=== PATIENT | male | born 1945 | race Caucasian/White ===

== ENCOUNTER → 2016-06-15 | Outpatient (CLI) | payer OTHER, MEDICARE ==
--- NOTE | 2016-06-15 18:55 | DX ---
Cervical Spine, Three Views HISTORY: History of cervical fusion. Right-sided pain. FINDINGS: There is bony fusion of C5 and C6. Marked intervertebral disk height loss at C4-C5 and C6-C7 is compatible with degenerative disk diseas e. Mild degenerative anterolisthesis of C3 upon C4. Marked uncovertebral degenerative changes throu ghout the mid and lower cervical spine. Soft tissue calcifications are present anterior to C3 and C4 . IMPRESSIONS 1. Prior fusion of C5 and C6. 2. Advanced degenerative disk disease at C4-C5 and C6-C7. 3. Mild degenerative anterolisthesis of C3 upon C4. 4. Multilevel uncovertebral and facet degenerative arthropathy throughout the mid and lower cervical spine.
== END ==
LOC: FIMAGING 11:36
PROVIDERS: ATTEND Orthopaedic Surgery Orthopaedic Surgery of the Spine
DX: M50.321 Other cervical disc degeneration at C4-C5 level (principal); M50.323 Other cervical disc degeneration at C6-C7 level; M12.88 Other specific arthropathies, not elsewhere classified, other specified site; Z98.1 Arthrodesis status

== ENCOUNTER → 2016-06-24 | Outpatient (CLI) | payer OTHER, MEDICARE ==
[~2016-06-24] MED LIST: FLUMAZENIL 0.5 MG/5 ML MDV IVP ONE; MIDAZOLAM 2 MG/2 ML VIAL ONE; NALOXONE HCL 0.4 MG/ML INJ ONE; NS 1,000 ML IV SCH; ONDANSETRON 4 MG/2 ML VIAL ONE; fentaNYL 100 MCG/2 ML INJ ONE
[2016-06-24 08:27] LABS: INR 1.02 (0.83-1.16); PROTIME(PATIENT) 13.3 SEC (12.0-15.0)
--- NOTE | 2016-06-24 10:52 | DX ---
Lumbar Myelogram Indication: 71 year old with back pain and left lower extremity radiculopathy. Comparison: Lumbar spine November 02, 2010, myelogram September 28, 2010. Informed consent was given, which included the risk of spinal headache, infection, aseptic meningitis and bleeding. The examination was performed with conscious sedation at the request of the patient. T he risks and benefits of conscious sedation were provided. Sedation: The patient received 50 mcg of fentanyl and 2 mg of Versed during 52 minutes of monitoring, with start time at 900 and end time at 952. Technique: The patient was placed prone on the fluoroscopic table. The L5 laminectomy defect was trevon ntified with fluoroscopy and the overlying skin was marked. The skin was cleaned with Betadine, steri carmelina draped, and the skin and deep soft tissues were numbed with 1% lidocaine. Utilizing intermittent fluoroscopy, a 22 gauge Tessy spinal needle was advanced into the thecal sac. Once clear CSF appe ared in the needle hub, 10 mL of nonionic Isovue M 200 contrast were slowly injected into the thecal sac and was seen to flow easily away from the needle on fluoroscopy. The needle was withdrawn. A band age was applied. Fluoroscopic images were obtained. The patient was then transferred to CT for furthe r imaging. Fluoroscopy: 1.4 minutes. Dose= 38.3 mGy. Findings: Bilateral L5-S1 fusion hardware is again noted. Mild spinal canal narrowing is present at L 1-L2 and L2-L3 with moderate spinal canal narrowing at L3-L4 and probable moderate spinal canal narro wing at L4-L5. Multilevel degenerative change in the lumbar spine will be further documented on subse quent CT. Atherosclerotic calcification is present in the aorta. Impression: Multilevel degenerative change and spinal canal narrowing, most prominent at L3-L4 and L4 -L5.
--- NOTE | 2016-06-24 11:22 | CT ---
CT Lumbar Myelogram History: 71 year old with prior lumbar surgery, low back pain radiating into the left lower extremity . Comparison: Lumbar myelogram September 28, 2010. Technique: Axial images were obtained through the lumbar spine following the intrathecal administrati on of contrast. Multiplanar reformations were performed. Dose reduction techniques were utilized. Findings: Bilateral transpedicular screw and macey fusion hardware at L5-S1 is stable, with all S1 scre ws extending ventral to the S1 body. Hardware is intact without evidence of loosening. Mild anterior height reduction at L1 and L2 is stable. Solid anterior fusion is noted at L5-S1. L5 laminectomy is n oted. Trace retrolisthesis of L1 on L2 and L2 on L3 is stable. 4 to 5 mm retrolisthesis of L3 on L4 a nd 6 mm anterolisthesis of L5 on S1 is stable. Vacuum disk is noted from L1 through L4. The conus is at L1 and appears normal. Mild fatty infiltration is suspected in the liver. Nodular contour of the adrenal glands is stable. N onobstructing right nephrolithiasis is present, with stones measuring up to 3 mm. Duplication of the left collecting system is noted. A small hiatal hernia is present. Sigmoid diverticulosis is present without evidence of diverticulitis. Moderate atherosclerosis is present in a normal caliber aorta. T10-T11: There is incomplete visualization of this level, with a moderate annular bulge causing moder ate spinal canal narrowing, similar to the comparison in its visualized extent. T11-T12: Mild vertebral spondylosis with a mild annular bulge, with minimal spinal canal narrowing an d no significant neural foraminal stenosis. T12-L1: Mild vertebral spondylosis with a minimal annular bulge with no significant spinal canal narr owing or neural foraminal stenosis. L1-2: Slight increase in severe vertebral spondylosis with no significant change in a mild diffuse an nular bulge. Small foraminal disk/osteophyte complexes, right greater than left, are again noted. There is stable mild spinal canal narrowing wit h minimal right neural foraminal stenosis. L2-3: Slight increase in moderate vertebral spondylosis with a small posterior disk/osteophyte comple x and minimal facet hypertrophy, with mild spinal canal narrowing and minimal left neural foraminal s tenosis. A left lateral osteophyte approaches the anterior aspect of the L2 nerve root, similar to th e comparison. L3-4: Severe vertebral spondylosis at L3-L4 with a posterior disk/osteophyte complex and moderate fac et and moderate left ligamentum flavum hypertrophy is noted. Right hemilaminotomy is suspected in the interval. Severe spinal canal narrowing (7 to 8 mm) is improved since the comparison, where it measu red approximately 5 to 6 mm. Mild to moderate right and severe left neural foraminal stenosis is incr eased since the comparison. L4-5: Increased severe vertebral spondylosis with a moderate posterior disk/osteophyte complex and mo derate to severe facet hypertrophy, with increased severe spinal canal narrowing (7 to 8 mm), previou sly 10 mm. Severe left and moderate right neural foraminal stenosis is increased since the comparison . Ligamentum flavum hypertrophy is less conspicuous. L5-S1: Prior fusion with no significant spinal canal narrowing or neural foraminal stenosis. Impression: 1. L3-L4: Severe spinal canal narrowing, improved since 2010, with increased mild to moderate right a nd severe left neural foraminal stenosis. 2. L4-L5: Severe spinal canal narrowing with severe left and moderate right neural foraminal stenosis , increased since the comparison. 3. Nonobstructing nephrolithiasis. 4. Additional findings as above. Please see above findings at specific disk levels.
== END ==
LOC: FIMAGING 07:29
PROVIDERS: ATTEND Orthopaedic Surgery Orthopaedic Surgery of the Spine
PROC: 3E0R3KZ Introduction of Other Diagnostic Substance into Spinal Canal, Percutaneous Approach (ICD-10-PCS; principal; 2016-06-24 10:00)
DX: M48.06 Spinal stenosis, lumbar region (principal); M51.86 Other intervertebral disc disorders, lumbar region; Z98.1 Arthrodesis status; I25.10 Atherosclerotic heart disease of native coronary artery without angina pectoris
CPT/HCPCS: 62284; 72132; 72265; J2250; J2405; J3010; J2310

== ENCOUNTER → 2017-07-05 | Outpatient (CLI) | payer OTHER, MEDICARE | LOC: BHFA 09:30 | PROVIDERS: ATTEND Internal Medicine Cardiovascular Disease | DX: Z01.818 Encounter for other preprocedural examination (principal) | CPT/HCPCS: 78452; 93017; A9500; J2785 ==

== ENCOUNTER → 2017-07-18 | Outpatient (CLI) | payer OTHER, MEDICARE | LOC: BHFA 08:00 | PROVIDERS: ATTEND Internal Medicine Interventional Cardiology | DX: R94.39 Abnormal result of other cardiovascular function study (principal) | CPT/HCPCS: 78472; A9560 ==

== ENCOUNTER 2017-07-24 07:15 | Inpatient (IN) | payer OTHER, MEDICARE ==
[2017-07-24] MEDS ORDERED: ceFAZolin 2 GM/SWFI 2 GM/20 ML SYR IVP ONE (09:12)
[2017-07-24] MEDS ORDERED: GABAPENTIN 300 MG CAP PO ONE (09:12)
[2017-07-24] MEDS ORDERED: ACETAMINOPHEN 500 MG TAB PO ONE (09:12)
[2017-07-24] MEDS ORDERED: LIDOCAINE 1% 2 ML INJ ID PRN (09:13)
[2017-07-24] MEDS ORDERED: LR 1,000 ML IV ONE (09:13)
[2017-07-24] MEDS ORDERED: CHLORHEXIDINE GLUC HIBICLENS 118 ML BTL TP ONE (09:27)
[2017-07-24] MEDS ORDERED: BUPIVACAINE 0.25% 30 ML SDV ONE ×2 (09:27→09:31)
[2017-07-24] MEDS ORDERED: THROMBIN (BOVINE) 5,000 UNIT VIAL TP ONE (09:27)
[2017-07-24] MEDS ORDERED: BACITRACIN 50,000 UNITS/10 ML SYR IRR ONE (09:28)
[2017-07-24] MEDS ORDERED: DEXMEDETOMIDINE/NS 4MCG/ML 50 ML BTL IV ONE (10:14)
[2017-07-24] MEDS ORDERED: PROPOFOL/EMULSION 500 MG/50 ML BOTTLE IV ONE (10:16)
[2017-07-24] MEDS ORDERED: MIDAZOLAM 2 MG/2 ML VIAL ONE (10:16)
[2017-07-24] MEDS ORDERED: fentaNYL 100 MCG/2 ML INJ ONE ×2 (10:16→11:09)
--- NOTE | 2017-07-24 10:16 | PDHPUP ---
History & Physical Update H&P update statement: This history and physical update is based on an assessment of the patient which was completed after admission or registration (within 24 hours), but prior to the surgery/procedure. H&P update: H&P reviewed & patient examined, no change in patient's condition since H&P completed
[2017-07-24] MEDS ORDERED: ALBUMIN 5% 250 ML BOTTLE IV ONE (10:52)
[2017-07-24] MEDS ORDERED: BISACODYL 10 MG SUPP PR PRN (10:55)
[2017-07-24] MEDS ORDERED: ONDANSETRON DISINTEGRATING 4 MG TAB PO PRN (10:55)
[2017-07-24] MEDS ORDERED: ONDANSETRON 4 MG/2 ML VIAL IVP PRN ×2 (10:55→13:07)
[2017-07-24] MEDS ORDERED: LACTULOSE 20 GM/30 ML UDCUP PO PRN (10:55)
[2017-07-24] MEDS ORDERED: MAGNESIUM HYDROXIDE 30 ML UDCUP PO PRN (10:55)
[2017-07-24] MEDS ORDERED: diphenhydrAMINE 25 MG CAP PO PRN (10:55)
--- NOTE | 2017-07-24 11:33 | PDANEPAE ---
ANE Past Medical History - Cardiovascular History Hx Hypertension: Yes Hx Arrhythmias: No Hx Chest Pain: No Hx Coronary Artery / Peripheral Vascular Disease: Yes Hx CHF / Valvular Disease: No Hx Palpitations: No Cardiovascular History Comment: CABG x 3 2008 - Pulmonary History Hx COPD: Yes Hx Asthma/Reactive Airway Disease: No Hx Recent Upper Respiratory Infection: No Hx Oxygen in Use at Home: Yes O2 in Use at Home (L/minute): 2 Hx Sleep Apnea: Yes Sleep Apnea Screening Result - Last Documented: Positive Pulmonary History Comment: CPAP at night - Neurologic History Hx Cerebrovascular Accident: No Hx Seizures: No Hx Dementia: No - Endocrine History Hx Diabetes: No - Renal History Hx Renal Disorders: No - Liver History Hx Hepatic Disorders: No - Neurological & Psychiatric Hx Hx Neurological and Psychiatric Disorders: No - Cancer History Hx Cancer: No - Congenital Disorder History Hx Congenital Disorders: No Congenital History Comment: degenerative disc dx - GI History Hx Gastrointestinal Disorders: No - Other Health History Other Health History: degenerative disc disease - Chronic Pain History Chronic Pain: Yes (lower back) - Surgical History Prior Surgeries: multiple back and neck surgeries, cataracts, heart bypass, right hip replacement, right ulna nerve, right shoulder, right knee, right great toe ANE Review of Systems Review of Systems: - Exercise capacity METS (RN): 4 METS ANE Patient History - Allergies Allergies/Adverse Reactions: No Allergies [NKA] Allergy (Verified 10/29/10 10:47) - Home Medications Home Medications: Aspirin [Aspirin 325 mg (*)] 2 - 4 each PO BID 08/08/09 [Last Taken 08/08/09 08: 00 81MG] Carvedilol [Coreg (*)] 25 mg PO BID 08/08/09 [Last Taken 08/08/09 08:00 25MG] Ibuprofen [Motrin (*)] 200 mg PO TID PRN 08/08/09 [Last Taken 08/08/09 08:00 400MG] Lisinopril [Zestril 20 mg (*)] 20 mg PO BID 08/08/09 [Last Taken 08/08/09 08:00] [place]-3 Fatty Acids [Fish Oil 1000 mg (*)] 1,000 mg PO BID 08/08/09 [Last Taken 08/08/09 08:00] Simvastatin [Zocor] 20 mg PO HS 08/08/09 [Last Taken 08/08/09 08:00 40MG] Budesonide/Formoterol 160/4.5 [Symbicort 160-4.5 Mcg Inh (*)] 2 puffs IH BID [Last Taken Unknown] Glucosamine/Chondroitin [Glucosamine/Chondroitin (*)] 1 each PO BID 06/21/16 [ Last Taken Unknown] Herbals/Supplements -Info Only 1 ea PO DAILY 06/21/16 [Last Taken Unknown] Loratadine 10 mg PO HS 06/21/16 [Last Taken Unknown] Multivitamins [Multivitamin (*)] 1 each PO DAILY 06/21/16 [Last Taken Unknown] Vitamin B Complex [B Complex] 1 each PO DAILY 06/21/16 [Last Taken Unknown] amLODIPine BESYLATE [Norvasc 5 mg (*)] 5 mg PO DAILY 06/21/16 [Last Taken Unknown] Ascorbic Acid [Vitamin C 500 mg (*)] 500 mg PO DAILY 07/04/17 [Last Taken Unknown] Gabapentin [Neurontin 300 MG (*)] 300 mg PO BID 07/04/17 [Last Taken Unknown] Hydrochlorothiazide [HCTZ (*)] 25 mg PO DAILY 07/04/17 [Last Taken Unknown] - NPO status NPO Since - Liquids (Date): 07/24/17 NPO Since - Liquids (Time): 06:00 NPO Since - Solids (Date): 07/23/17 NPO Since - Solids (Time): 21:00 - Smoking Hx Smoking Status: Former smoker - Family Anes Hx Family Hx Anesthesia Complications: denies ANE Labs/Vital Signs - Vital Signs Blood Pressure: 121/71 Heart Rate: 64 Respiratory Rate: 14 O2 Sat (%): 91 Height: 175.26 cm Weight: 88.451 kg ANE Physical Exam - Airway Neck exam: decreased ROM, spinal fusion, short neck Mallampati Score: Class 3 Mouth exam: poor dentition, small mouth opening - Pulmonary Pulmonary: reduced air movement, expiratory wheeze, respiratory distress - Cardiovascular Cardiovascular: regular rate and rhythym, no murmur, rub, or gallop - ASA Status ASA Status: IV ANE Anesthesia Plan Anesthesia Plan: general endotracheal anesthesia Lines/Monitors: arterial line, additional IV Specialized Airway: video laryngoscope
[2017-07-24] MEDS ORDERED: PROPOFOL 200 MG/20 ML VIAL ONE ×5 (12:01→15:32)
[2017-07-24] MEDS ORDERED: RANITIDINE 50 MG/2 ML VIAL ONE (12:08)
[2017-07-24] MEDS ORDERED: LIDOCAINE 2% 5 ML SDV ONE (12:08)
[2017-07-24] MEDS ORDERED: ROCURONIUM 50 MG/5 ML VIAL ONE (12:08)
[2017-07-24] MEDS ORDERED: SUCCINYLCHOLINE CHLORIDE 200 MG/10 ML SYR IVP ONE (12:08)
[2017-07-24] MEDS ORDERED: ONDANSETRON 4 MG/2 ML VIAL ONE (12:08)
[2017-07-24] MEDS ORDERED: morphINE PF 5 MG/10 ML INJ ONE (12:32)
[2017-07-24] MEDS ORDERED: PHENYLEPHRINE HCL 100 MCG/ML SYR IVP PRN (13:07)
[2017-07-24] MEDS ORDERED: LR 500 ML IV PRN (13:07)
[2017-07-24] MEDS ORDERED: DEXAMETHASONE 4 MG/ML VIAL IVP PRN (13:07)
[2017-07-24] MEDS ORDERED: fentaNYL 100 MCG/2 ML INJ IVP PRN (13:07)
[2017-07-24] MEDS ORDERED: ENALAPRILAT DIHYDRATE 1.25 MG/ML VIAL IVP PRN (13:07)
[2017-07-24] MEDS ORDERED: NALOXONE HCL 0.4 MG/ML INJ IVP PRN (13:07)
[2017-07-24] MEDS ORDERED: METOPROLOL TARTRATE 5 MG/5 ML INJ ONE (13:12)
[2017-07-24] MEDS ORDERED: ceFAZolin 2 GM/DEXTROSE 100 ML IV SCH (14:00)
[2017-07-24] MEDS ORDERED: ceFAZolin 2 GM/SWFI 2 GM/20 ML SYR IVP SCH (14:00)
[2017-07-24] MEDS ORDERED: PHENYLEPHRINE HCL 100 MCG/ML SYR ONE (15:41)
--- NOTE | 2017-07-24 16:59 | POSTOPPROG ---
Post Op Note Date of Operation: 07/24/17 Surgeon: Javed Milan Manager Marketing Sales: Camila Morrison PA-C Anesthesia: GET(General Endotracheal) Pre-op Diagnosis: Lumbar Stenosis Post-op Diagnosis: Same Procedure: Removal of hardware L5/S1, L3/4, L4/5 TLIF, L3-5 Posterior Fusion Findings: See dicated operative note Inf/Abcess present in the surg proc area at time of surgery?: No Depth: Organ Space EBL: 500 Drains: Timi Rhodes SOAP Progress Note Assessment/Plan: Assessment: Plan: 07/24/17 17:00 S: Patient in PACU. Stable with expected post incisional pain. O: NAD, VSS CN II-XII grossly intact No droop ALEMAN X4 BLE 5/5 Incision c/d/i-dressed VALDO X1- To full suction A: 72 yo male sp Removal of hardware L5/S1, L3/4, L4/5 TLIF, L3-5 Posterior Fusion for left leg pain Plan: -Admit to SDU with Tele for strong cardiac history and per recommendation of his Math Specialist -0.1mg Intrathecal Morphine given at 1630 -Optimize pain management -Brace will be fit for him in am -May be up and out of bed prior to brace arriving -Advance diet as tolerated -PT/OT -VALDO X 1 to full suction -DVT: TEDs, SCDs, Lovenox ok 24 hours postop -Patient seen by Dr. Milan in PACU Objective: Vital Signs Temp Pulse Resp BP Pulse Ox 36.8 C 64 14 121/71 H 91 L 07/24/17 09:16 07/24/17 11:33 07/24/17 11:33 07/24/17 11:33 07/24/17 11:33
--- NOTE | 2017-07-24 17:24 | POSTANESTH ---
Post Anesthetic Evaluation Cardiovascular Status: Normal, Stable Respiratory Status: Normal, Stable, Similar to Pre-op Cond. Level of Consciousness/Mental Status: Can Participate in Eval Pain Control: Adequate, Prn Tx Ordered Nausea/Vomiting Control: Adequate, Prn Tx Ordered Complications Possibly Related to Anesthesia: None Noted
[2017-07-24] MEDS: NS W/ 20 KCl/L 1,000 ML IV SCH (18:01)
[2017-07-24] MEDS: ACETAMINOPHEN 500 MG TAB PO SCH ×2 (18:03→23:03)
--- NOTE | 2017-07-24 18:45 | GOP ---
[f rep st] OPERATIVE REPORT DATE OF OPERATION: 07/24/2017 SURGEON: Javed Milan MD FREELANCE WEB DESIGNER: Camila Morrison, MAURICIO ANESTHESIA: General endotracheal. PREOPERATIVE DIAGNOSIS: Severe lumbar degenerative disease with radiculopathy and lumbar stenosis at the adjacent segment, L4-5, and severe stenosis at L3-4. POSTOPERATIVE DIAGNOSIS: Severe lumbar degenerative disease with radiculopathy and lumbar stenosis a t the adjacent segment, L4-5, and severe stenosis at L3-4. PROCEDURE PERFORMED: 1. Exploration of spinal fusion. 2. Removal of hardware, L5 and S1. 3. Replacement of pedicle screws at L5. 4. Placement of pedicle screw fixation, L3 and L4. 5. Placement of interbody device, L3-4, L4-5. 6. Transforaminal lumbar interbody fusion, L3-4, L4-5. 7. Posterolateral fusion, L3 to S1. 8. [place] of local autograft. 9. Use of allograft, bone morphogenic protein, and cancellous bone chips. 10. Use of the operative microscope. 11. O-arm stereotactic navigation for screw placement. 12. Intraoperative neurophysiologic monitoring, including somatosensory evoked potentials and electr omyography. FINDINGS: Successful transforaminal lumbar interbody fusion. SPECIMENS: None. ESTIMATED BLOOD LOSS: 500 cc. INDICATIONS: The patient is a 72-year-old man who has a long history of lumbar problems. He had an L5-S1 fusion done by Dr. Mcgee in the . He presents now with severe left-sided leg pain a nd some quadriceps weakness and was found on CT myelogram to have severe adjacent segment disease at L4-5 and severe foraminal and lateral recess stenosis at L3-4. He does have significant degenerative disease at L1-2 and L2-3, as well. However, these do not seem to have any signs of nerve compressio n. He presents today electively for hardware removal and extension of his fusion up to L3. DESCRIPTION OF PROCEDURE: After informed consent was obtained from the patient, the patient was brou ght to the operating room and a formal time-out was performed, identifying the patient by name, medic al record number and date of . Preoperative antibiotics were given. An endotracheal tube was p laced and general endotracheal anesthesia was smoothly induced. The patient was then turned to the p elmira position on the Timi table and all appropriate pressure points were padded and checked. All appropriate leads were placed for intraoperative neurophysiologic monitoring. The previous incision was marked with a slight extension to the cephalad area, and the lumbar region was prepped and draped in the normal sterile fashion. The skin incision was made over the old incision using a 10 blade an d the subcutaneous tissues were dissected using monopolar electrocautery. The nearest spinous proces s was identified and the fascia was opened in the midline. This appeared to be the spinous process o f L5, and we dissected up to the spinous process of L4 as well. The paraspinous muscles were taken d own from the lamina and out over the facet joints. Given the previous laminectomy at L5-S1, the scar tissue was left alone in the midline and we dissected out laterally toward the previous hardware. T he screw head at L5 was identified and this was carried down to expose the screw head at S1. These w ere somewhat encased in bone and were the old DePuy system. Therefore, osteotomes were used to remov e some of the surrounding bone identifying the screw heads. The instrumentation removal set was then used to remove the locking caps and the plates that were connecting the screw heads were carefully r emoved as well. This was quite difficult given the nature of the bone growth and the fact that the h ardware had been in place for quite some time, but eventually we were able to remove all 4 screws fro m L5 and S1 on both sides. At this point, this area of the wound was packed off and we made sure that we had high enough exposur e up to L3 to place L3, L4 and L5 pedicle screws. The stereotactic arc was then connected to the L5 spinous process and the O-arm was used to perform a stereotactic spin showing the relevant anatomy. At this point, the pedicle entry points were localized using stereotaxis and at L5 bilaterally the pr eviously drilled holes were used to place a 6.5 x 55 mm Medtronic Solera screw on the left side and a 6.5 x 55 mm Solera screw on the right. Next, we moved up to L4 and the entry points of the pedicles were decorticated. We then used a 4.5-5 .5 mm tap to tap using stereotactic guidance with the O-arm. Each pedicle was then sounded to be sathya e there was no breach and 6.5 x 55 mm screws were placed bilaterally at L4. The same procedure was p erformed at L3, placing 6.5 x 55 mm screws there as well. All the screw heads were then stimulated u sing the neurophysiologic monitoring, and all stimulated above threshold. Next, the O-arm was brought back onto the field and a 2nd spin was obtained showing all the screws to be in excellent placement and within the pedicles. Next, screw head distraction was placed at L3-4 on the left side and the high-speed drill was used to drill through the pars interarticularis disconnecting the inferior articulating facet which was savita jordyn. The superior articular facet of L4 was also drilled off completely decompressing the foramen. The exiting nerve root was visualized and was completely decompressed. The yellow ligament was remov ed and this was removed down to the pedicle. The disk space was then entered and some posterior oste ophytes were drilled down. A complete diskectomy was performed decorticating the endplates down to b leeding bone. Once the complete diskectomy was performed, the disk space was sized for a 7 x 28 mm Medtronic Elevat e cage, which was packed with locally harvested morselized autograft from the facet joints and some B MP. BMP was placed across the disk space and some of the autograft was also placed within the disk s pace. The cage was then placed stereotactically and opened to its full extent of 11 mm. We then pac ked another 10 cc of autograft mixed with cancellous bone chips into the disk space lateral to the ca ge. We then moved our distractors down to the L4-5 interspace. This was extremely collapsed and the re was not much space in the foramen. Again, the pars was drilled and the inferior articular facet w as removed. The exiting L4 nerve root was completely decompressed in the lateral part of the foramen and again the yellow ligament was removed and some scar tissue was seen inferiorly. As this was delfino ared, we were able to enter into the disk space, although the stereotaxis was no longer accurate. e C-arm was brought back into the field and this cage was placed using the C-arm. Again, a complete diskectomy was performed and the endplates were decorticated. Autograft and BMP were placed across t disk space and this disk space was also sized for a 7 x 28 mm Medtronic Elevate cage, which was pl aced in the disk space using fluoroscopy. It was again opened to its full extent and lateral x-rays showed good placement. At this point, the distractors were removed. The right-sided lamina and facet joints at L3, L4 and L 5 were decorticated using the high-speed drill and the remaining BMP and autograft mixed with cancell ous bone chips was placed out over this area for a posterolateral fusion. On the right side, a 5.5 x 60 mm titanium macey was placed and locked in place using locking caps which were tightened to their f inal torque. On the left side, a 5.5 x 55 mm titanium macey was placed and, again, locked in place and to the final torque. All bleeding was controlled using bipolar electrocautery and Gelfoam. The wound was copiously irriga svetlana using bacitracin irrigation. A VALDO drain was placed in the subfascial space and the fascia was cl osed in the midline using interrupted 0 Vicryls. Final x-rays were taken. The final somatosensory e voked potentials and EMG remained stable and at baseline. The deep dermis was then closed using inte rrupted 2-0 Vicryls and the skin was closed using Dermabond. Sterile dressings were placed. The pat ient was awakened in the operating room, was transferred to the PACU in stable condition. There were no operative complications. I was scrubbed and present for the entire procedure. All sponge and ne edle counts were correct at the end of the case. FLUIDS AND URINE OUTPUT: Per the anesthesia record. DRAINS: A subfascial VALDO. /[id number]/MODL
[2017-07-24] MEDS: METHOCARBAMOL 750 MG TAB PO PRN (20:34)
[2017-07-24] MEDS: ATORVASTATIN CALCIUM 10 MG TAB PO SCH (20:34)
[2017-07-24] MEDS: SENNOSIDES/DOCUSATE SODIUM TAB PO SCH (20:34)
[2017-07-24] MEDS: CARVEDILOL 25 MG TAB PO SCH (20:34)
[2017-07-24] MEDS: GABAPENTIN 300 MG CAP PO SCH (20:35)
[2017-07-24] MEDS: CETIRIZINE 10 MG TAB PO SCH (20:35)
[2017-07-24] MEDS: BUDESONIDE/FORMOTEROL 160/4.5 60 PUFFS/MDI IH SCH (21:00)
[2017-07-24] MEDS: LISINOPRIL 20 MG TAB PO SCH (21:11)
[2017-07-25] MEDS ORDERED: ceFAZolin 2 GM/SWFI 2 GM/20 ML SYR IVP SCH (02:00)
[2017-07-25] MEDS: NS W/ 20 KCl/L 1,000 ML IV SCH (03:47)
[2017-07-25] MEDS: ACETAMINOPHEN 500 MG TAB PO SCH ×3 (05:44→21:28)
[2017-07-25 06:17] LABS: PLATELET COUNT 197 10^3/uL (150-400)
[2017-07-25] MEDS: METHOCARBAMOL 750 MG TAB PO PRN ×3 (07:32→21:28)
[2017-07-25] MEDS: SENNOSIDES/DOCUSATE SODIUM TAB PO SCH ×2 (07:32→21:35)
[2017-07-25] MEDS: GABAPENTIN 300 MG CAP PO SCH ×2 (07:32→21:36)
--- NOTE | 2017-07-25 08:36 | NEUSURGPN ---
Date of Surgery: 07/24/17 Post Op Day: 1 Assessment/Plan: Assessment: 72 year old s/p L5-S1 removal of hardware, L3-4, L4-5 TLIF with L3- 5 posterior fusion for left leg pain Plan: -Pain management, patient received IT narcotics intraop. Will attempt to use oral medications to manage pain -H/H 30.5/10.3 this am, will continue to follow given patients cardiac history -Wear brace when out of bed, patient has brace -PT/OT eval and treat -Post op xrays pending for today -Will leave VALDO in place today -Patient was seen by Dr Milan this am as well Subjective: Feeling good this am Objective: AxO x3 PERRL 5/5 BUE, BLE Sensation intact to light touch BLE Dressing CDI VALDO patent Neuro Check Frequency: per routine Catheter Insertion Date: 07/24/17 - Physician Discussed Patient with : Bjorn Patient Seen by Dr.: Milan Neurosurgery Physical Exam - Vitals, I&O, Labs I and O 07/24/17 07/25/17 07/26/17 05:59 05:59 05:59 Intake Total 4130 Output Total 2475 40 Balance 1655 -40 Weight 88.451 kg Intake: Oral (ml) 360 IV Intake (ml) 2000 IV Infused (ml) 1270 NS W/ 20 KCl/L 1,000 ml @ 1250 100 mls/hr IV CONT [facility] Rx#:[id number] ceFAZolin 2 GM/DEXTROSE 20 100 ml @ 200 mls/hr IV Q8HRS [facility] Rx#:[id number] Fresh Frozen Plasma (ml) 500 Output: Urine (ml) 1400 Catheter 1400 Estimated Blood Loss (ml) 500 VALDO Drain Output (ml) 575 40 #1 Back 0 Left Back 575 40 Vital Signs Temp Pulse Resp BP Pulse Ox 36.3 C 63 17 95/49 L 95 07/25/17 07:26 07/25/17 07:26 07/25/17 07:26 07/25/17 07:26 07/25/17 07:26 Laboratory Results 07/25/17 05:42 07/25/17 05:42 ICD10 Worksheet Patient Problems: Problems Problem Status Onset Lumbar stenosis Acute - ICD10 Problem Qualifiers (1) Lumbar stenosis
[2017-07-25] MEDS: BUDESONIDE/FORMOTEROL 160/4.5 60 PUFFS/MDI IH SCH ×2 (09:00→21:18)
[2017-07-25] MEDS: CARVEDILOL 25 MG TAB PO SCH ×2 (09:02→21:48)
[2017-07-25] MEDS: amLODIPine BESYLATE 5 MG TAB PO SCH (09:08)
[2017-07-25] MEDS: LISINOPRIL 20 MG TAB PO SCH ×2 (09:09→21:48)
[2017-07-25] MEDS: HYDROCHLOROTHIAZIDE 25 MG TAB PO SCH (09:09)
--- NOTE | 2017-07-25 09:52 | ASMTCMCOM ---
CM Note CM Note Notes: 72 yr old male admitted for Back, Leg, Neck pain; Leg weakness. Has a Hx of L5-S1 fusion in . Had L5-S1 hardware removal, L3-4; L4-5 TLIF; L3-5 fusion. Therapies to eval for discharge needs. CM to follow. Date Signed: 07/25/2017 09:51 AM Electronically Signed By:Sasha Zamora LCSW
[2017-07-25] MEDS: oxyCODONE IR 5 MG TAB PO PRN ×3 (10:37→23:12)
[2017-07-25] MEDS: ENOXAPARIN 40 MG/0.4 ML SYR SC SCH (15:36)
--- NOTE | 2017-07-25 16:05 | ASMTCMCOM ---
CM Note CM Note Notes: Spoke to patient who is very interested in going to [facility] on discharge. His second choice is [facility]. His friend in [place] to bring suitcase with clothes when discharged. Referrals made. Date Signed: 07/25/2017 04:04 PM Electronically Signed By:Sasha Zamora LCSW
[2017-07-25] MEDS: CETIRIZINE 10 MG TAB PO SCH (21:36)
[2017-07-25] MEDS: ATORVASTATIN CALCIUM 10 MG TAB PO SCH (21:37)
[2017-07-25] MEDS: POLYETHYLENE GLYCOL 3350 17 GM PKT PO PRN (21:48)
[2017-07-26] MEDS: METHOCARBAMOL 750 MG TAB PO PRN ×3 (04:23→18:06)
[2017-07-26] MEDS: ACETAMINOPHEN 500 MG TAB PO SCH ×3 (05:01→22:34)
[2017-07-26] MEDS: oxyCODONE IR 5 MG TAB PO PRN ×3 (08:13→18:06)
[2017-07-26] MEDS: SENNOSIDES/DOCUSATE SODIUM TAB PO SCH ×2 (08:14→22:34)
[2017-07-26] MEDS: BUDESONIDE/FORMOTEROL 160/4.5 60 PUFFS/MDI IH SCH ×2 (08:14→21:12)
[2017-07-26] MEDS: ENOXAPARIN 40 MG/0.4 ML SYR SC SCH ×2 (08:14→08:19)
[2017-07-26] MEDS: GABAPENTIN 300 MG CAP PO SCH ×2 (08:14→22:34)
--- NOTE | 2017-07-26 08:14 | NEUSURGPN ---
Date of Surgery: 07/24/17 Post Op Day: 2 Assessment/Plan: Assessment: 72 year old s/p L5-S1 removal of hardware, L3-4, L4-5 TLIF with L3- 5 posterior fusion for left leg pain POD#2 Plan: -Pain management-patient with expected incisional pain, patient was reluctant to take oxycodone but feels he will start that today -H/H 27/9 this am, will give one unit PRBC, SBP in 80's and patient has cardiac history. Anemia related to acute blood loss from surgery. -Wear brace when out of bed, patient has brace -PT/OT eval and treat -Post op xrays stable -Will leave VALDO in place today -Patient was discussed with Dr Milan -Please call neurosurgery with any questions/concerns Subjective: Expected incisional pain, patient sitting up in chair Objective: AxO x3 PERRL 5/5 BUE, BLE Sensation intact to light touch BLE Dressing CDI VALDO patent Neuro Check Frequency: per routine Urinary Catheter in Place: No Catheter Insertion Date: 07/24/17 - Physician Discussed Patient with : Bjorn Neurosurgery Physical Exam - Vitals, I&O, Labs I and O 07/25/17 07/26/17 07/27/17 05:59 05:59 05:59 Intake Total 4130 1950 Output Total 2475 1565 Balance 1655 385 Weight 88.451 kg Intake: Oral (ml) 360 1350 IV Intake (ml) 2000 IV Infused (ml) 1270 600 NS W/ 20 KCl/L 1,000 ml @ 1250 600 100 mls/hr IV CONT [facility] Rx#:[id number] ceFAZolin 2 GM/DEXTROSE 20 100 ml @ 200 mls/hr IV Q8HRS [facility] Rx#:[id number] Fresh Frozen Plasma (ml) 500 Output: Urine (ml) 1400 1225 Catheter 1400 250 Urinal 975 Estimated Blood Loss (ml) 500 VALDO Drain Output (ml) 575 340 #1 Back 0 Left Back 575 340 Other: Number of Voids Urinal 1 Bladder Scan Volume (ml) Catheter 146 Vital Signs Temp Pulse Resp BP Pulse Ox 36.8 C 72 16 90/50 L 93 07/26/17 04:00 07/26/17 07:37 07/26/17 07:37 07/26/17 07:37 07/26/17 07:37 Laboratory Results 07/26/17 04:50 07/25/17 05:42 ICD10 Worksheet Patient Problems: Problems Problem Status Onset Lumbar stenosis Acute - ICD10 Problem Qualifiers (1) Lumbar stenosis
[2017-07-26] MEDS: amLODIPine BESYLATE 5 MG TAB PO SCH (10:57)
[2017-07-26] MEDS: LISINOPRIL 20 MG TAB PO SCH ×2 (10:58→22:48)
[2017-07-26] MEDS: HYDROCHLOROTHIAZIDE 25 MG TAB PO SCH (10:58)
[2017-07-26] MEDS: CARVEDILOL 25 MG TAB PO SCH ×2 (11:27→22:35)
--- NOTE | 2017-07-26 15:57 | ASMTCMCOM ---
CM Note CM Note Notes: Pt accepted at [facility], will d/c when medically stable. Date Signed: 07/26/2017 03:56 PM Electronically Signed By:MOY Pritchett
[2017-07-26] MEDS: CETIRIZINE 10 MG TAB PO SCH (22:34)
[2017-07-26] MEDS: ATORVASTATIN CALCIUM 10 MG TAB PO SCH (22:34)
[2017-07-27] MEDS: ACETAMINOPHEN 500 MG TAB PO SCH ×3 (05:12→21:57)
[2017-07-27] MEDS: oxyCODONE IR 5 MG TAB PO PRN ×5 (05:12→21:59)
[2017-07-27] MEDS: BUDESONIDE/FORMOTEROL 160/4.5 60 PUFFS/MDI IH SCH ×2 (08:41→20:23)
[2017-07-27] MEDS: SENNOSIDES/DOCUSATE SODIUM TAB PO SCH ×2 (09:44→21:59)
[2017-07-27] MEDS: CARVEDILOL 25 MG TAB PO SCH ×2 (09:46→21:59)
[2017-07-27] MEDS: METHOCARBAMOL 750 MG TAB PO PRN ×2 (09:46→18:13)
[2017-07-27] MEDS: GABAPENTIN 300 MG CAP PO SCH ×2 (09:46→21:59)
[2017-07-27] MEDS: POLYETHYLENE GLYCOL 3350 17 GM PKT PO PRN (09:50)
[2017-07-27] MEDS: ENOXAPARIN 40 MG/0.4 ML SYR SC SCH (09:51)
--- NOTE | 2017-07-27 10:04 | NEUSURGPN ---
Assessment/Plan: Assessment: Plan: 07/24/17 17:00 Assessment/Plan: Assessment: 72 year old s/p L5-S1 removal of hardware, L3-4, L4-5 TLIF with L3- 5 posterior fusion for left leg pain POD#3 Plan: -Pain management-patient with expected incisional pain that is somewhat worse today as expected now that the IT narcotics have worn off but is still doing great. -H/H 30/10 his am,will continue to monitor -BP was low, but 120/60 this am- will continue to hold BP meds this morning though -Wear brace when out of bed, patient has brace -PT/OT eval and treat -Post op xrays stable -Will remove VALDO today -Patient was discussed with Dr Milan and seen by Dr. Milan this am -Dispo- Plan on dispo to rehab tomorrow- want to give one more day to monitor H/ H, BP, etc. -Please call neurosurgery with any questions/concerns Subjective: Sitting in chair, tolerating brace but does put pressure on his incision at times. Denies leg pain, has expected back pain. Objective: AxO x3 PERRL 5/5 BUE, BLE Sensation intact to light touch BLE Dressing CDI VALDO to full suction, minimal serosang in bulb Catheter Insertion Date: 07/24/17 - Physician Discussed Patient with : Bjorn Neurosurgery Physical Exam - Vitals, I&O, Labs I and O 07/26/17 07/27/17 07/28/17 05:59 05:59 05:59 Intake Total 1950 800 Output Total 1565 1345 700 Balance 385 -545 -700 Intake: Oral (ml) 1350 800 IV Infused (ml) 600 NS W/ 20 KCl/L 1,000 ml @ 600 100 mls/hr IV CONT [place] Rx#:[id number] Output: Urine (ml) 1225 1200 700 Catheter 250 Urinal 975 1200 700 VALDO Drain Output (ml) 340 145 Left Back 340 145 Other: Intake Quantity Yes Sufficient Number of Voids Urinal 1 1 1 Bladder Scan Volume (ml) Catheter 146 Vital Signs Temp Pulse Resp BP Pulse Ox 36.4 C 78 16 120/60 85 L 07/27/17 07:58 07/27/17 08:47 07/27/17 08:47 07/27/17 07:58 07/27/17 08:47 Laboratory Results 07/27/17 05:05 07/25/17 05:42 ICD10 Worksheet Patient Problems: Problems Problem Status Onset Lumbar stenosis Acute
[2017-07-27] MEDS: amLODIPine BESYLATE 5 MG TAB PO SCH (10:09)
[2017-07-27] MEDS: LISINOPRIL 20 MG TAB PO SCH ×2 (10:10→21:58)
[2017-07-27] MEDS: HYDROCHLOROTHIAZIDE 25 MG TAB PO SCH (10:10)
[2017-07-27] MEDS: K BICARB/NA BICARB/CITAC/ALKA 2 TAB/PKT PO PRN ×2 (15:07→22:01)
[2017-07-27] MEDS: ATORVASTATIN CALCIUM 10 MG TAB PO SCH (21:58)
[2017-07-27] MEDS: CETIRIZINE 10 MG TAB PO SCH (22:00)
[2017-07-28] MEDS: METHOCARBAMOL 750 MG TAB PO PRN ×2 (05:24→16:27)
[2017-07-28] MEDS: K BICARB/NA BICARB/CITAC/ALKA 2 TAB/PKT PO PRN (05:25)
[2017-07-28] MEDS: ACETAMINOPHEN 500 MG TAB PO SCH ×2 (05:25→14:40)
[2017-07-28] MEDS: oxyCODONE IR 5 MG TAB PO PRN ×3 (05:25→16:27)
[2017-07-28 08:02] VITALS: RESP 16
[2017-07-28] MEDS: BUDESONIDE/FORMOTEROL 160/4.5 60 PUFFS/MDI IH SCH (08:50)
--- NOTE | 2017-07-28 09:15 | NEUSURGPN ---
Date of Surgery: 07/24/17 Post Op Day: 4 Assessment/Plan: Assessment: 72 year old s/p L5-S1 removal of hardware, L3-4, L4-5 TLIF with L3- 5 posterior fusion for left leg pain POD#3 Plan: -Pain management-patient with expected incisional pain, getting benefits from ice pack to incisional area -Wear brace when out of bed, patient has brace -PT/OT eval and treat -Post op xrays stable -VALDO removed yesterday -Ok to remove dressing and shower -Will work on BM today, bowel protocol in place. -Once patient has BM, ok to dc to rehab per therapies recs -Patient was discussed with Dr Milan -Please call neurosurgery with any questions/concerns Subjective: Sitting in chair, incisional discomfort Objective: AxO x3 PERRL 5/5 BUE, BLE Sensation intact to light touch BLE Dressing CDI Neuro Check Frequency: per routine Urinary Catheter in Place: No Catheter Insertion Date: 07/24/17 - Physician Discussed Patient with Dr.: Milan Neurosurgery Physical Exam - Vitals, I&O, Labs I and O 07/27/17 07/28/17 07/29/17 05:59 05:59 05:59 Intake Total 800 1820 Output Total 1345 2870 Balance -545 -1050 Intake: Oral (ml) 800 1820 Output: Urine (ml) 1200 2800 Urinal 1200 2800 VALDO Drain Output (ml) 145 70 Left Back 145 70 Other: Intake Quantity Yes Yes Sufficient Number of Voids Toilet 1 Urinal 1 1 Vital Signs Temp Pulse Resp BP Pulse Ox 36.8 C 82 16 125/67 H 93 07/28/17 08:00 07/28/17 08:50 07/28/17 08:50 07/28/17 08:00 07/28/17 08:50 Laboratory Results 07/27/17 05:05 07/25/17 05:42 ICD10 Worksheet Patient Problems: Problems Problem Status Onset Lumbar stenosis Acute - ICD10 Problem Qualifiers (1) Lumbar stenosis
[2017-07-28] MEDS: ENOXAPARIN 40 MG/0.4 ML SYR SC SCH (09:41)
[2017-07-28] MEDS: CARVEDILOL 25 MG TAB PO SCH (09:42)
[2017-07-28] MEDS: GABAPENTIN 300 MG CAP PO SCH (09:42)
[2017-07-28] MEDS: SENNOSIDES/DOCUSATE SODIUM TAB PO SCH (09:42)
[2017-07-28] MEDS: LISINOPRIL 20 MG TAB PO SCH (09:43)
[2017-07-28] MEDS: HYDROCHLOROTHIAZIDE 25 MG TAB PO SCH (09:56)
[2017-07-28] MEDS: amLODIPine BESYLATE 5 MG TAB PO SCH (10:21)
[2017-07-28 11:50] VITALS: BP 112/54; PULSE 77; TEMP 98.1; O2SAT 95
[2017-07-28] MEDS ORDERED: MAGNESIUM CITRATE 300 ML BOTTLE PO ONE (13:45)
--- NOTE | 2017-07-28 15:08 | PDIAF ---
- Diagnosis Diagnosis: S/P lumbar fusion Code Status: Full Code - Medication Management Discharge Medications: Medications to Continue on Transfer Carvedilol [Coreg (*)] 25 mg PO BID 08/08/09 [Last Taken 08/08/09 08:00 25MG] Lisinopril [Zestril 20 mg (*)] 20 mg PO BID 08/08/09 [Last Taken 08/08/09 08:00] [place]-3 Fatty Acids [Fish Oil 1000 mg (*)] 1,000 mg PO BID 08/08/09 [Last Taken 08/08/09 08:00] Simvastatin [Zocor] 20 mg PO HS 08/08/09 [Last Taken 08/08/09 08:00 40MG] Budesonide/Formoterol 160/4.5 [Symbicort 160-4.5 Mcg Inh (*)] 2 puffs IH BID [Last Taken Unknown] Glucosamine/Chondroitin [Glucosamine/Chondroitin (*)] 1 each PO BID 06/21/16 [ Last Taken Unknown] Herbals/Supplements -Info Only 1 ea PO DAILY 06/21/16 [Last Taken Unknown] Loratadine 10 mg PO HS 06/21/16 [Last Taken Unknown] Multivitamins [Multivitamin (*)] 1 each PO DAILY 06/21/16 [Last Taken Unknown] Vitamin B Complex [B Complex] 1 each PO DAILY 06/21/16 [Last Taken Unknown] amLODIPine BESYLATE [Norvasc 5 mg (*)] 5 mg PO DAILY 06/21/16 [Last Taken Unknown] Ascorbic Acid [Vitamin C 500 mg (*)] 500 mg PO DAILY 07/04/17 [Last Taken Unknown] Gabapentin [Neurontin 300 MG (*)] 300 mg PO BID 07/04/17 [Last Taken Unknown] Hydrochlorothiazide [HCTZ (*)] 25 mg PO DAILY 07/04/17 [Last Taken Unknown] Acetaminophen [Tylenol ES 500 mg (*)] 1,000 mg PO Q8HRS tab 07/28/17 [Last Taken Unknown] Aspirin [Aspirin 325 mg (*)] 2 - 4 each PO BID #0 07/28/17 [Last Taken 08/08/09 08:00 81MG] K Bicarb/Na Bicarb/Citac/Angela [Angela-[place] Gold] 2 tab PO Q4 PRN tab 07/28/17 [Last Taken Unknown] Methocarbamol [Robaxin 750 mg (*)] 750 mg PO QID PRN #60 tab 07/28/17 [Last Taken Unknown] Sennosides/Docusate Sodium [Senokot-S] 1 - 2 tab PO BID tab 07/28/17 [Last Taken Unknown] oxyCODONE IR [Oxycodone Ir (*)] 5 - 10 mg PO Q4HRS PRN #60 tab 07/28/17 [Last Taken Unknown] Discharge Medications: Refer to the Discharge Home Medication list for PRN reason. PICC Care - Routine: N/A - Orders Services needed: Registered Nurse, Certified Book Repairer, Physical Therapy, Occupational Therapy Diet Recommendation: no restrictions on diet Diet Texture: Regular Texture Diet Wound Care Instructions: Ok to shower Activity/Weight Bearing Restrictions: No bending or twisting Additional: Do not lift greater than 10 pounds - Follow Up Care Current Providers and Referrals: Gabriel Burt DO [Primary Care Provider] - Joselo Li MD [Medical Doctor] - follow up as scheduled (Please follow up with Dr Milan in 2 weeks ) Javed Milan MD [Medical Doctor] - follow up in 2 weeks
--- NOTE | 2017-07-28 16:55 | ASMTCMCOM ---
CM Note CM Note Notes: Pt medically stable for d/c to [facility] WC van scheduled by [facility] for 16:45. FRED Guerrero to call report. Date Signed: 07/28/2017 04:54 PM Electronically Signed By:MOY Pritchett
== END 2017-07-28 17:10 | DRG 454 ==
LOC: F3N 08:35 → F2N 10:56 → F3N 07-25 16:23
PROVIDERS: ADMIT Neurological Surgery; ATTEND Neurological Surgery
PROC: 4A1004G Monitoring of Central Nervous Electrical Activity, Intraoperative, Open Approach (ICD-10-PCS; principal; 2017-07-24 10:15)
PROC: 0SG1071 Fusion of 2 or more Lumbar Vertebral Joints with Autologous Tissue Substitute, Posterior Approach, Posterior Column, Open Approach (ICD-10-PCS; principal; 2017-07-24 10:15)
PROC: 0ST20ZZ Resection of Lumbar Vertebral Disc, Open Approach (ICD-10-PCS; principal; 2017-07-24 10:15)
PROC: 8E0WXBZ Computer Assisted Procedure of Trunk Region (ICD-10-PCS; principal; 2017-07-24 10:15)
PROC: 0SG10AJ Fusion of 2 or more Lumbar Vertebral Joints with Interbody Fusion Device, Posterior Approach, Anterior Column, Open Approach (ICD-10-PCS; principal; 2017-07-24 10:15)
PROC: 0SP Lower Joints, Removal (ICD-10-PCS; principal; 2017-07-24 10:15)
PROC: 0SP303Z Removal of Infusion Device from Lumbosacral Joint, Open Approach (ICD-10-PCS; principal; 2017-07-24 10:15)
PROC: 01NB0ZZ Release Lumbar Nerve, Open Approach (ICD-10-PCS; principal; 2017-07-24 10:15)
PROC: 30233N1 Transfusion of Nonautologous Red Blood Cells into Peripheral Vein, Percutaneous Approach (ICD-10-PCS; 2017-07-26)
DX: M48.061 Spinal stenosis, lumbar region without neurogenic claudication (principal); D62 Acute posthemorrhagic anemia; M51.36 Other intervertebral disc degeneration, lumbar region; M54.16 Radiculopathy, lumbar region; I10 Essential (primary) hypertension; G47.33 Obstructive sleep apnea (adult) (pediatric); E78.5 Hyperlipidemia, unspecified; Z72.0 Tobacco use; Z95.1 Presence of aortocoronary bypass graft; Z98.1 Arthrodesis status; Z96.641 Presence of right artificial hip joint
CPT/HCPCS: 97116-GP; 97161-GP; 97165-GO; 97530-GP; 97535-GO; C1713; C1762; G8978-GP-CJ; G8979-GP-CI; G8987-GO-CK; G8988-GO-CI; J0171; J0330; J0690; J1650; J2250; J2274; J2370; J2405; J2704; J2780; J3010; P9016; P9041

== ENCOUNTER → 2017-09-11 | Outpatient (CLI) | payer OTHER, MEDICARE | LOC: CIMAGING 13:34 | PROVIDERS: ATTEND Physician Assistant Medical | DX: I82.492 Acute embolism and thrombosis of other specified deep vein of left lower extremity (principal) | CPT/HCPCS: 93971-PO ==

== ENCOUNTER 2018-06-04 09:10 | Inpatient (IN) | payer OTHER, MEDICARE ==
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
[2018-06-04 10:43] LABS: PLATELET COUNT 252 10^3/uL (150-400)
[2018-06-04 10:51] LABS: INR 1.19 (0.83-1.16); PROTIME(PATIENT) 15.3 SEC (12.0-15.0)
[2018-06-04] MEDS ORDERED: FUROSEMIDE 20 MG/2 ML VIAL IVP ONE (11:57)
[2018-06-04] MEDS ORDERED: PERFLUTREN LIPID MICROSPHERES 1.1 MG/ML VIAL IV ONE (12:31)
[2018-06-04] MEDS ORDERED: ONDANSETRON DISINTEGRATING 4 MG TAB PO PRN (12:39)
[2018-06-04] MEDS ORDERED: ONDANSETRON 4 MG/2 ML VIAL IVP PRN (12:39)
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
--- NOTE | 2018-06-04 14:02 | ECHO ---
[email or web address] [address] [address] Main: [phone] Fax: Transthoracic Echocardiogram Name: GEOVANNY VELAZCO MR#: [id number] Study Date: 06/04/2018 Study Time: 12:08 PM Date of : 1945 Age: 72 year(s) Height: 175.3 cm (69 in.) Weight: 88.45 kg (195 lb.) BSA: 2.04 m2 Gender: Male Examination: Echo Indication: CHF, Atrial Flutter Image Quality: Fair Contrast: Requested by: Yissel Bennett BP: 153 mmHg/115 mmHg Heart Rate: Rhythm: Indication: CHF, Atrial Flutter Procedure Staff Police Patrol Officer: Emilee Bergeron RDCS Reading Physician: Guillermo Barnett MD Requesting Provider: Conclusions: No pericardial effusion. Reduced LV systolic function ejection fraction 30-35% with regional wall motion abnormalities described above. Left atrial dilatation. Mild to moderate mitral regurgitation. Vaya-kw-mutqaabi tricuspid regurgitation. Right ventricular systolic pressure is elevated. Measurements: Chambers Valvular Assessment AV/MV Valvular Assessment TV/PV Normal Normal Normal Name Value Range Name Value Range Name Value Range Ao Pooja (MM): 3.6 cm (2.2 cm-3.7 AV Vmax: 1.03 m/s (1 m/s-1.7 TR Vmax: 3.95 mm/s ( - ) cm) m/s) TR PGmax: 62 mmHg ( - ) LVDd (2D): 6.2 cm (4.2 cm-5.9 AV maxP mmHg ( - ) syst. PAP: 67 mmHg ( - ) cm) AV meanP mmHg ( - ) LVEF (MOD4): 27 % (>=55 %) MV E Vmax: 1.23 m/s ( - ) EF Range: 30-35 % MV A Vmax: 0.37 m/s ( - ) MV E/A: 3.32 ( - ) Continued Measurements: Chambers Valvular Assessment AV/MV Valvular Assessment TV/PV Name Value Name Value Name Value LADs: 5.2 cm MV E/E' Septal: 19.10 CVP (est.): 5 mmHg LADs Lon.2 cm MV E/E' Lateral: 12.60 LA Area: 25.9 cm2 LA Volume: 76 ml LA Volume Index: 37.3 ml/m2 Findings: Left Ventricle: Patient: GEOVANNY VELAZCO Study Date: 06/04/2018 Page 1 of 2 12:08 PM Mildly to moderately dilated left ventricle. No LV hypertrophy. The ejection fraction is estimated to be 30-35 %. LV mid inferoseptal/mid inferior and entire apical regions are akinetic. No LV apical thrombus.. Right Ventricle: Normal size right ventricle. Left Atrium: The left atrium is mildly to moderately dilated. Right Atrium: The right atrium is mildly dilated. Mitral Valve: The mitral valve is normal in appearance and function. Mild to moderate mitral regurgitation. Aortic Valve: The aortic valve is normal in appearance and function. Tricuspid Valve: The tricuspid valve is normal in appearance and function. Mild to moderate tricuspid valve regurgitation. The pulmonary artery pressure is moderately increased. Pulmonic Valve: Pulmonary valve not well visualized. Aorta: The aorta is normal. Pericardium: No pericardial effusion. (No Signature Object) Patient: GEOVANNY VELAZCO Study Date: 06/04/2018 Page 2 of 2 12:08 PM [id number]
--- NOTE | 2018-06-04 14:17 | PDMN ---
Medical Necessity Medical necessity: [facility] M190 Heart Failure: 72 yo c/o BLE swelling and SOB. Pt in acute heart failure w/ hypoxemia (87% RA) requiring supp O2, and renal insufficiency w/ creat 1.4 up from baseline 0.8 meeting [facility] IP criteria for HF. Hx CAD, CABGx3 s/p [place] 2008, DVT jun 2017, HTN, HLD, cardiomyopathy, arrhythmia , back surgery jun 2017, [place] 2009, cervical nerve ablation Mar 2018, sleep apnea w/ 2L NC HS.
[2018-06-04] MEDS: FUROSEMIDE 40 MG/4 ML VIAL IVP SCH (14:40)
[2018-06-04] MEDS ORDERED: LACTULOSE 20 GM/30 ML UDCUP PO PRN (14:48)
[2018-06-04] MEDS ORDERED: POLYETHYLENE GLYCOL 3350 17 GM PKT PO PRN (14:48)
[2018-06-04] MEDS ORDERED: MAGNESIUM HYDROXIDE 30 ML UDCUP PO PRN (14:48)
[2018-06-04] MEDS ORDERED: BISACODYL 10 MG SUPP PR PRN (14:48)
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
--- NOTE | 2018-06-04 15:27 | CPEKG ---
Test Reason : OPEN Blood Pressure : / mmHG Vent. Rate : 098 BPM Atrial Rate : 047 BPM P-R Int : 164 ms QRS Dur : 145 ms QT Int : 378 ms P-R-T Axes : 000 -58 081 degrees QTc Int : 483 ms Sinus rhythm Ventricular bigeminy Nonspecific IVCD with LAD Inferior infarct, acute (LCx) Probable anteroseptal infarct, old Confirmed by Sophie Craft ([id number]) on 06/04/2018 3:26:37 PM Referred By: Confirmed By:Sophie Craft
--- NOTE | 2018-06-04 16:21 | ASMTCMCOM ---
CM Note CM Note Notes: Chart reviewed for discharge planning purposes. 72 year old male admitted via ED for c/o feeling "off" associated with sob and increased edema of lower extremities. Significant cardiac history and now presents with new onset atrial flutter. He is retired and single living independently in [facility] to follow for needs. Plan: TBD Date Signed: 06/04/2018 04:20 PM Electronically Signed By:Asha Arriaga RN
[2018-06-04] MEDS ORDERED: SODIUM CL NASAL 45 ML BTL EACHNARE PRN (16:31)
--- NOTE | 2018-06-04 17:03 | PDGENHP ---
History and Physical History and Physical: Addendum to H&P by Sophie Torre: Acute systolic CHF, EF 30-35% AFlutter CAD, s/p CABG x 3 Ischemic CMP Valvular disease (MR) HTN HLD -D/w Cardiology -TTE cardioversion in AM. -Check TSH. -Continue home meds, including ACEI, ARB. Pt will need to be counseled about importance of compliance with cardiac meds. -Consider cath as an outpatient to eval cause, if none is found during this visit. Shortness of breath Peripheral edema Elevated D-dimer COPD MAUREEN, on 2L O2 Pulm HTN H/o DVT -Lasix 40mg BID. Strict I/Os, fluid restriction, low sodium diet. -Replace potassium as needed. -Check AM labs. -PAP may be up from COPD/MAUREEN but need to r/o PE w/ elevated D-dimer. Check CTA chest. -Continue O2 at night. MARTHA, likely prerenal -Pt has been taking a lot of NSAIDs/ASA at home for neck pain. This is not good for his kidneys or heart. Will elder counselor on avoiding chronic use of these. -Recheck in AM. Cr may to decline a bit from CT dye and diuresis. Chronic neck pain DJD/OA -Acetaminophen and/or oxycodone prn pain. -Bowel protocol. Chronic sinusitis -Pt has been on 3 rounds of antibiotics per PCP and ENT. -Controlled. -Mucinex and saline nasal rinses as needed. VTE ppx - Eliquis. Full Code. Inpatient for IV meds and close monitoring of electrolytes/arrhythmia /fluid status.
[2018-06-04] MEDS: oxyCODONE IR 5 MG TAB PO PRN ×2 (17:06→20:34)
[2018-06-04] MEDS ORDERED: IPRATROPIUM/ALBUTEROL 3 ML DEYVIAL IH PRN (17:07)
[2018-06-04] MEDS ORDERED: IOPAMIDOL (ISOVUE 370) 100 ML BTL IV ONE (17:16)
[2018-06-04] MEDS ORDERED: guaiFENesin 200 MG/10 ML UDL PO PRN (18:42)
[2018-06-04] MEDS ORDERED: PROTOCOL MAGNESIUM 1 DOSE IV PRN (18:43)
[2018-06-04] MEDS ORDERED: PROTOCOL POTASSIUM 1 DOSE MISC PRN (18:43)
[2018-06-04] MEDS: APIXABAN 5 MG TAB PO SCH (20:32)
[2018-06-04] MEDS: OXYMETAZOLINE 30 ML NASAL SPRAY EACHNARE SCH (20:32)
[2018-06-04] MEDS: CARVEDILOL 25 MG TAB PO SCH (20:32)
[2018-06-04] MEDS: LISINOPRIL 40 MG TAB PO SCH (20:34)
[2018-06-04] MEDS: MELATONIN 3 MG TAB PO SCH (20:34)
[2018-06-04] MEDS: SENNOSIDES/DOCUSATE SODIUM TAB PO SCH (20:39)
[2018-06-04] MEDS: SIMVASTATIN 2.5 MG PO SCH (20:39)
[2018-06-04] MEDS: BUDESONIDE/FORMOTEROL 160/4.5 60 PUFFS/MDI IH SCH (22:21)
[2018-06-04] MEDS ORDERED: POTASSIUM CL 10 MEQ TAB PO ONE (23:28)
[2018-06-05 05:12] LABS: PLATELET COUNT 275 10^3/uL (150-400)
[2018-06-05 05:17] LABS: INR 1.22 (0.83-1.16); PROTIME(PATIENT) 15.6 SEC (12.0-15.0)
[2018-06-05] MEDS ORDERED: ATROPINE SULFATE 1 MG/10 ML SYR IVP ONE (06:00)
[2018-06-05] MEDS ORDERED: NS 1,000 ML IV ONE (06:00)
[2018-06-05] MEDS: APIXABAN 5 MG TAB PO SCH ×2 (08:55→19:51)
[2018-06-05] MEDS: BUDESONIDE/FORMOTEROL 160/4.5 60 PUFFS/MDI IH SCH ×2 (10:16→21:30)
[2018-06-05] MEDS ORDERED: ATROPINE SULFATE 1 MG/10 ML SYR ONE (10:38)
--- NOTE | 2018-06-05 10:39 | PDANEPAE ---
ANE History of Present Illness here for SHANNON/CV ANE Past Medical History - Cardiovascular History Hx Hypertension: Yes Hx Arrhythmias: No Hx Chest Pain: No Hx Coronary Artery / Peripheral Vascular Disease: Yes Hx CHF / Valvular Disease: No Hx Palpitations: No Cardiovascular History Comment: CABG x 3 2008 - Pulmonary History Hx COPD: Yes Hx Asthma/Reactive Airway Disease: No Hx Recent Upper Respiratory Infection: No Hx Oxygen in Use at Home: Yes O2 in Use at Home (L/minute): 2 Hx Sleep Apnea: Yes Pulmonary History Comment: CPAP at night - Neurologic History Hx Cerebrovascular Accident: No Hx Seizures: No Hx Dementia: No - Endocrine History Hx Diabetes: No - Renal History Hx Renal Disorders: No - Liver History Hx Hepatic Disorders: No - Neurological & Psychiatric Hx Hx Neurological and Psychiatric Disorders: No - Cancer History Hx Cancer: No - Congenital Disorder History Hx Congenital Disorders: No Congenital History Comment: degenerative disc dx - GI History Hx Gastrointestinal Disorders: No - Other Health History Other Health History: degenerative disc disease - Chronic Pain History Chronic Pain: Yes (lower back) - Surgical History Prior Surgeries: multiple back and neck surgeries, cataracts, heart bypass, right hip replacement, right ulna nerve, right shoulder, right knee, right great toe ANE Review of Systems Review of Systems: - Exercise capacity Exercise capacity: <4 METS, >=4 METS ANE Patient History - Allergies Allergies/Adverse Reactions: No Allergies [NKA] Allergy (Verified 06/04/18 09:18) - Home Medications Home Medications: Aspirin [Aspirin 325 mg (*)] 650 mg PO TID 06/04/18 [Last Taken 06/04/18] Budesonide/Formoterol 160/4.5 [Symbicort 160-4.5 Mcg Inh (*)] 2 puffs IH BID 12/14 [Last Taken 06/03/18] Calcium Carb W/Vit D 500/200 (*) 1 tab PO HS 06/04/18 [Last Taken 06/03/18] Carvedilol [Coreg (*)] 25 mg PO BID 06/04/18 [Last Taken 06/04/18] Furosemide [Lasix 40 MG (*)] 40 mg PO DAILY 06/04/18 [Last Taken 06/04/18] Glucosamine/MSM/Chondroitin A [Glucosamine Chondroit MSM Tab] 1 each PO BID 12/14 [Last Taken 06/04/18] Ibuprofen [Motrin (*)] 400 mg PO TID 06/04/18 [Last Taken 06/04/18] Lisinopril [Zestril 40 mg (*)] 40 mg PO HS 06/04/18 [Last Taken 06/03/18] Loratadine [Claritin 10 mg] 10 mg PO DAILY 06/04/18 [Last Taken 06/04/18] Lutein 20 mg PO DAILY 06/04/18 [Last Taken 06/04/18] Multivitamins [Multivitamin (*)] 1 each PO DAILY 06/04/18 [Last Taken 06/04/18] [place]-3/Dha/Epa/Fish Oil [Fish Oil 1,000 mg Softgel] 1 each PO BID 06/04/18 [ Last Taken 06/04/18] Simvastatin 2.5 mg PO HS 06/04/18 [Last Taken 06/03/18] Umeclidinium [place] [Incruse Ellipta] 62.5 mcg IH DAILY 06/04/18 [Last Taken ] Vitamin B Complex (OTC) 1 tab PO HS 06/04/18 [Last Taken 06/03/18] - NPO status NPO Status: no food or drink >8 hours - Smoking Hx Smoking Status: Former smoker - Alcohol Use Alcohol Use: Heavy - Family Anes Hx Family Hx Anesthesia Complications: denies ANE Labs/Vital Signs - Labs Result Diagrams: 06/05/18 04:46 06/05/18 04:46 - Vital Signs Vital Signs: reviewed preoperatively; see RN documention for details Blood Pressure: 139/82 Heart Rate: 72 Respiratory Rate: 14 O2 Sat (%): 97 Height: 175.26 cm Weight: 90.5 kg
[2018-06-05] MEDS ORDERED: PROPOFOL 200 MG/20 ML VIAL ONE (10:40)
--- NOTE | 2018-06-05 10:54 | PDTEE1 ---
SHANNON Cardioversion Procedure Procedure: electrical cardioversion, transesophageal echo Indications: other (atrial flutter) Anticoagulation: eliquis Procedural Details: Pads were placed in anterior-posterior position. SHANNON probe was advanced and standard images obtained. There is no evidence of left atrial or left atrial appendage thrombus. Synchronized cardioversion attempt #1: 200J Results: normal sinus rhythm Conclusions: successful SHANNON cardioversion Patient Problems: Problems Problem Status Onset chronic disease mgmt/transitional care Acute Lumbar stenosis Acute Myocardial infarction Acute Dyspnea Acute Heart failure Acute
--- NOTE | 2018-06-05 10:57 | POSTANESTH ---
Post Anesthetic Evaluation Cardiovascular Status: Normal, Stable Respiratory Status: Normal, Stable Level of Consciousness/Mental Status: Moderately Sleepy Pain Control: Adequate, Prn Tx Ordered Nausea/Vomiting Control: Adequate, Prn Tx Ordered Complications Possibly Related to Anesthesia: None Noted
[2018-06-05] MEDS: FUROSEMIDE 40 MG/4 ML VIAL IVP SCH ×2 (13:09→16:49)
[2018-06-05] MEDS: CARVEDILOL 25 MG TAB PO SCH ×2 (13:10→19:51)
[2018-06-05] MEDS: SENNOSIDES/DOCUSATE SODIUM TAB PO SCH ×2 (13:10→19:51)
[2018-06-05] MEDS: OXYMETAZOLINE 30 ML NASAL SPRAY EACHNARE SCH ×2 (13:11→19:53)
[2018-06-05] MEDS: ACETAMINOPHEN 325 MG TAB PO PRN ×2 (13:14→19:50)
--- NOTE | 2018-06-05 13:50 | HOSPPROG ---
Hospitalist Progress Note Assessment/Plan: The patient is a 72yo M with PMH CAD who was admitted for new onset CHF with exacerbation and atrial flutter. ASSESSMENT/PLAN: New onset systolic CHF, EF 30-35% AFlutter, resolved CAD, s/p CABG x 3 Ischemic CMP Valvular disease- mod MR HTN HLD -s/p cardioverson today -continue diuresis. Cardiology recs appreciated. -Continue cardiac/home meds. Pt restarted on Eliquis this admission. -DDx cause - MAUREEN/Pulm HTN/COPD, valve disease, cardiac ischemia (chronic). Shortness of breath, improved Peripheral edema, stable Elevated D-dimer COPD MAUREEN, on 2L O2 Pulm HTN H/o DVT -Lasix 40mg BID. Strict I/Os, fluid restriction, low sodium diet. -Replace potassium as needed. -Check AM labs. -PAP up from MAUREEN/COPD -- pt seeing Dr. Walker as outpt. -Continue O2 at night. Chronic neck pain DJD/OA -Acetaminophen and/or oxycodone prn pain. -Bowel protocol. Chronic sinusitis -Pt has been on 3 rounds of antibiotics per PCP and ENT. -Controlled. -Mucinex and saline nasal rinses as needed. MARTHA, prerenal - resolved VTE ppx - Eliquis. Full Code. Inpatient for IV meds and close monitoring of electrolytes/arrhythmia /fluid status. Status: inpt for > 2 midnight stay Disposition: medsur ____ SUBJECTIVE: Today pt feels well. Underwent cardioversion w/ SHANNON today w/o complication. Feels edema is about the same. OBJECTIVE: Physical Exam: General: The patient is an elderly male who is alert and in no acute distress. HEENT: normocephalic, extraocular movements intact, conjunctivae clear. Mucous membranes moist. Neck: trachea midline, no visible masses. CV: +S1/S2, RRR, no MRG. Resp: unlabored, CTAB no RRW. Abd: soft and nondistended. Musculoskeletal: Normal muscle tone/bulk. Neuro: cranial nerves II - XII grossly intact. Intact gross motor and sensory function. Psych: Appropriate mood and appropriate affect. Skin: No pallor. No petechiae. Heme/lymph: +2 pitting peripheral edema b/l ankles Labs/Imaging/Other Tests: Personally reviewed/interpreted. EKG -- personally interpreted - SR, LAE, AIAI/ant ischemia Objective: Vital Signs Temp Pulse Resp BP Pulse Ox 36.6 C 75 15 121/67 H 96 06/05/18 12:00 06/05/18 13:21 06/05/18 13:21 06/05/18 13:21 06/05/18 13:21 Laboratory Results 06/05/18 04:46 06/05/18 04:46 06/04/18 06/05/18 06/06/18 05:59 05:59 05:59 Intake Total 825 500 Output Total 4225 Balance -3400 500 PT 15.6 SEC (12.0-15.0) H 06/05/18 04:46 INR 1.22 (0.83-1.16) H 06/05/18 04:46 - Time Spent With Patient Time Spent with Patient: greater than 35 minutes Time Spent with Patient: Greater than 35 minutes spent on this patients care, greater than 50% of time spent counseling, educating, and coordinating care regarding the above mentioned plan. ICD10 Worksheet Patient Problems: Problems Problem Status Onset Dyspnea Acute Heart failure Acute Myocardial infarction Acute chronic disease mgmt/transitional care Acute Lumbar stenosis Acute
[2018-06-05] MEDS ORDERED: K BICARB/NA BICARB/CITAC/ALKA 2 TAB/PKT PO PRN (13:56)
[2018-06-05] MEDS: MELATONIN 3 MG TAB PO SCH (19:52)
[2018-06-05] MEDS: SIMVASTATIN 2.5 MG PO SCH (19:54)
[2018-06-05] MEDS: LISINOPRIL 40 MG TAB PO SCH (22:18)
[2018-06-05] MEDS: oxyCODONE IR 5 MG TAB PO PRN (22:18)
[2018-06-06] MEDS: oxyCODONE IR 5 MG TAB PO PRN (04:40)
[2018-06-06 05:08] LABS: PLATELET COUNT 258 10^3/uL (150-400)
--- NOTE | 2018-06-06 06:47 | CPEKG ---
Test Reason : OPEN Blood Pressure : / mmHG Vent. Rate : 056 BPM Atrial Rate : 056 BPM P-R Int : 227 ms QRS Dur : 108 ms QT Int : 427 ms P-R-T Axes : 047 021 085 degrees QTc Int : 413 ms Sinus rhythm First degree AV block. Incomplete left bundle branch block Low voltage, extremity leads Anterior Q waves Confirmed by Farooq Hernandez ([id number]) on 06/06/2018 6:47:05 AM Referred By: Confirmed By:Farooq Hernandez
[2018-06-06] MEDS: BUDESONIDE/FORMOTEROL 160/4.5 60 PUFFS/MDI IH SCH (08:53)
[2018-06-06] MEDS ORDERED: ASPIRIN EC 81 MG TAB PO SCH (09:00)
[2018-06-06] MEDS: SENNOSIDES/DOCUSATE SODIUM TAB PO SCH (09:14)
[2018-06-06] MEDS: CARVEDILOL 25 MG TAB PO SCH (09:14)
[2018-06-06] MEDS: ACETAMINOPHEN 325 MG TAB PO PRN (09:14)
[2018-06-06] MEDS: FUROSEMIDE 40 MG/4 ML VIAL IVP SCH (09:15)
[2018-06-06] MEDS: APIXABAN 5 MG TAB PO SCH (09:15)
--- NOTE | 2018-06-06 11:06 | SOAPPROG ---
NORBERTO Progress Note Assessment/Plan: Assessment: Problem list: 1. Persistent atrial fibrillation status post cardioversion 2. Coronary disease history of coronary bypass grafting 3. Ischemic cardiomyopathy with most recent ejection fraction of 52% 4. Hyperlipidemia 5. Hypertension 6. Obstructive sleep apnea. Procedure: SHANNON cardioversion on 06/05/2018. Discussion: Significant clinical improvement with spiritism of sinus rhythm. He is appropriately rate controlled. He appears to be well compensated and euvolemic. Recommendations are to continue current medical therapy. Transition to oral diuretic. Clinical follow-up. Referral back to patient's primary care cone operator Dr. Gibbons. 06/06/18 11:03 Subjective: Feeling significantly better. No shortness of breath PND orthopnea. He has been up walking without limitations. Objective: Medications Generic Name Dose Route Start Last Admin Trade Name Freq PRN Reason Stop Dose Admin Lactulose 20 gm 06/04/18 14:48 Cephulac PO 12/01/18 14:47 TID PRN Constipation Protocol Albuterol/Ipratropium 3 ml 06/04/18 17:07 Duoneb IH 12/01/18 17:06 Q6HRS PRN Short of Breath/Dyspnea Carvedilol 25 mg 06/04/18 21:00 06/06/18 09:14 Coreg PO 12/01/18 20:59 25 mg BID [facility] Furosemide 40 mg 06/04/18 15:00 06/06/18 09:15 Lasix Injection IVP 12/01/18 14:59 40 mg BID@0900,1500 [facility] Guaifenesin 200 mg 06/04/18 18:42 Robitussin Oral Liquid 200mg/10ml PO 12/01/18 18:41 Q4HRS PRN Cough, Mild Apixaban 5 mg 06/04/18 21:00 06/06/18 09:15 Eliquis PO 12/01/18 20:59 5 mg BID [facility] Aspirin Buffered 81 mg 06/06/18 09:00 06/06/18 09:15 Aspirin Ec PO 12/03/18 08:59 81 mg DAILY [facility] Budesonide/Formoterol Fumarate 2 puffs 06/04/18 21:00 06/06/18 08:53 Symbicort 160-4.5 Mcg Inhaler IH 12/01/18 20:59 Not Given BID [facility] Lisinopril 40 mg 06/04/18 21:00 06/05/18 22:18 Zestril PO 12/01/18 20:59 40 mg HS LAVON Vital Signs Temp Pulse Resp BP Pulse Ox 36.4 C 60 16 130/69 H 93 06/06/18 08:00 06/06/18 08:00 06/06/18 08:00 06/06/18 08:00 06/06/18 08:00 Laboratory Results 06/06/18 03:55 06/06/18 03:55 06/05/18 06/06/18 06/07/18 05:59 05:59 05:59 Intake Total 825 1350 Output Total 4225 3010 175 Balance -3400 -1660 -175 PT 15.6 SEC (12.0-15.0) H 06/05/18 04:46 INR 1.22 (0.83-1.16) H 06/05/18 04:46 Physical Exam - Physical Exam General Appearance: no apparent distress Neck: supple Respiratory: decreased breath sounds, No rales, No rhonchi Cardiac/Chest: regular rate, rhythm, No JVD Abdomen: normal bowel sounds, non-tender, soft Back: Normal inspection Skin: No rash Neuro/Psych: alert, normal mood/affect, No facial droop ICD10 Worksheet Patient Problems: Problems Problem Status Onset chronic disease mgmt/transitional care Acute Lumbar stenosis Acute Myocardial infarction Acute Dyspnea Acute Heart failure Acute Review of Systems - Review of Systems Constitutional: denies: chills, fever EENTM: no symptoms reported Respiratory: no symptoms reported Cardiac: no symptoms reported Gastrointestinal/Abdominal: no symptoms reported Genitourinary: no symptoms Musculoskelatal: no symptoms Skin: no symptoms Neurological: no symptoms Hematologic/Lymphatic: no symptoms reported Immunologic/allergic: no symptoms reported
--- NOTE | 2018-06-06 13:07 | ECHO ---
[email or web address] [address] [address] Main: [phone] Fax: Transesophageal Echocardiography Name: GEOVANNY VELAZCO MR#: [id number] Study Date: 06/05/2018 Study Time: 10:42 AM Date of : 1945 Age: 72 year(s) Height: ( ) Weight: ( ) BSA: Gender: Male Examination: Echo Indication: Pre Cardioversion Image Quality: Contrast: Requested by: Yissel Bennett Heart Rate: Rhythm: Atrial flutter BP: / Procedure Staff Coffee Sampler: Brent Krause RDCS Reading Physician: Guillermo Barnett MD Requesting Provider: SHANNON Exam Details Measurements: Chambers Valvular Assessment AV/MV Valvular Assessment TV/PV Normal Normal Normal Name Value Range Name Value Range Name Value Range Additional Measurements: Findings: Left Ventricle: Moderately reduced systolic LV function. There is apical hypokinesis.. Right Ventricle: Normal size right ventricle. Normal RV function. Left Atrial Appendage: Good color flow doppler in the left atrial appendage. No thrombus in left appendage. Right Atrium: The right atrium is normal in size. Mitral Valve: The mitral valve is normal in appearance and function. Mild mitral valve regurgitation is present. Aortic Valve: The aortic valve is tri-leaflet and functions normally. Tricuspid Valve: The tricuspid valve appears normal. Trivial to mild tricuspid valve regurgitation. Pulmonic Valve: Patient: GEOVANNY VELAZCO Study Date: 06/05/2018 Page 1 of 2 10:42 AM The pulmonic valve is normal in appearance and function. Aorta: The aorta is normal. Pericardium: No pericardial effusion. Exam Comments: Proceeded with successful elective DC cardioversion.. l1n (No Signature Object) Patient: GEOVANNY VELAZCO Study Date: 06/05/2018 Page 2 of 2 10:42 AM [id number]
[2018-06-06] MEDS: OXYMETAZOLINE 30 ML NASAL SPRAY EACHNARE SCH (14:54)
--- NOTE | 2018-06-06 14:56 | PDHOMEO2F ---
Home Oxygen Face to Face Home Orders: I certify that a physician or a nurse practitioner or physician's hair or beauty salon assistant has had a [id number] encounter with this patient on the date of this order due to the diagnosis listed, which relates to the primary reason the patient requires home oxygen. Alternative treatments have been tried, or considered, and deemed ineffective. It is anticipated that supplemental oxygen will result in improvement with treatment. Home oxygen qualifying diagnosis: copd SpO2 on room air (%): 79 Frequency of home oxygen needed: continuous Home oxygen liters per minute: 2 Home oxygen delivery device: nasal cannula Concentrator: Yes E-tanks for mobility and back up: Yes If ordering portable O2, is the patient mobile in the home?: Yes I certify that, based on these findings, the home oxygen is medically necessary for this patient for the following length of time. Length of time home oxygen needed: 3 months
--- NOTE | 2018-06-06 14:56 | HOSPPROG ---
Hospitalist Progress Note Assessment/Plan: 72 yo M w chf, copd here w new AF, AHRF,, sCHF home today see dc summary > 30 minutes on dc Subjective: in sinus. axious for dc Objective: Vital Signs Temp Pulse Resp BP Pulse Ox 36.3 C 72 20 92/47 L 79 L 06/06/18 12:00 06/06/18 14:06 06/06/18 14:06 06/06/18 12:00 06/06/18 14:06 Laboratory Results 06/06/18 03:55 06/06/18 03:55 06/05/18 06/06/18 06/07/18 05:59 05:59 05:59 Intake Total 825 1350 880 Output Total 4225 3010 700 Balance -3400 -1660 180 PT 15.6 SEC (12.0-15.0) H 06/05/18 04:46 INR 1.22 (0.83-1.16) H 06/05/18 04:46 - Physical Exam Constitutional: no apparent distress, appears nourished Eyes: PERRL, anicteric sclera Ears, Nose, Mouth, Throat: moist mucous membranes, hearing normal Cardiovascular: regular rate and rhythym, no murmur, rub, or gallop Respiratory: no respiratory distress, no rales or rhonchi Gastrointestinal: normoactive bowel sounds, soft, non-tender abdomen Genitourinary: No lovett in urethra Skin: warm, normal color Musculoskeletal: full muscle strength Neurologic: AAOx3 ICD10 Worksheet Patient Problems: Problems Problem Status Onset Dyspnea Acute Heart failure Acute Myocardial infarction Acute chronic disease mgmt/transitional care Acute Lumbar stenosis Acute
[2018-06-06] MEDS ORDERED: FUROSEMIDE 40 MG TAB PO SCH (15:00)
--- NOTE | 2018-06-06 15:15 | ASMTCAGE ---
CAGE Do you feel you ought to Answers: No cut down on your drinking or drug use? Do people annoy you by Answers: No criticizing your drinking or drug use? Do you feel guilty about Answers: No your drinking or drug use? 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 Additional Comments 6 gin and tonics per day. 2 oz of gin per drink (12 oz total/day). Declined resources stating "I will cut back if a doctor tells me to." Date Signed: 06/06/2018 03:14 PM Electronically Signed By:Mckenzie Mo RN
--- NOTE | 2018-06-06 15:18 | ASMTDCNOTE ---
Case Management Discharge Discharge Order Complete? Answers: Yes Patient to Obtain Answers: Independently Medications Discharge Comments Notes: 06/06/2018 Case Management Note Met w/pt to discuss discharge needs. Pt to discharge home independent. Transitional Care RN to follow at home. Completed CAGE. Pt declined resources. Phone call to RN career based intervention coordinator at [facility] [phone] Burt to discuss alcohol consumption at next visit. Date Signed: 06/06/2018 03:17 PM Electronically Signed By:Mckenzie Mo RN
--- NOTE | 2018-06-06 15:21 | ASDISCHSUM ---
Discharge Information Plan Status:Home with No Needs Medically Cleared to Leave:06/05/2018 Discharge Date:06/05/2018 CM D/C Disposition:Home, Routine, Self-Care ADT D/C Disposition: Projected Discharge Date:06/05/2018 Transportation at D/C: Discharge Delay Reason: Follow-Up Date:06/05/2018 Discharge Slot: Final Diagnosis: Placement Information Patient Contact Information Contact Name:CIARRA Relationship:Destini Address: Work Phone: City: [facility] Phone: State/[place] Code: Email: Financial Information Financial Class:Medicare Primary Plan Desc:MEDICARE INPATIENT Primary Plan Number:[id number] Secondary Plan Desc:AMELIA/MDR SUPPLEMENT Secondary Plan Number:[id number] Assessment Information LACE LACE Length of stay for Answers: 2 days current admission Acuity / Level of Answers: Yes Care: Did the patient have an inpatient admission? Comorbidities - select Answers: Congestive heart failure all that apply Coronary Artery Disease Opioid dependence / Chronic pain Previous myocardial infarction Other Notes: DVT; HTN; HLD # of Emergency department Answers: 1-2 visits in the last 6 months Score: 16 Date Signed: 06/06/2018 03:18 PM Electronically Signed By:Mckenzie Mo RN [facility] Progress Note CM Note CM Note Notes: Chart reviewed for discharge planning purposes. 72 year old male admitted via ED for c/o feeling "off" associated with sob and increased edema of lower extremities. Significant cardiac history and now presents with new onset atrial flutter. He is retired and single living independently in [place] CM to follow for needs. Plan: TBD Date Signed: 06/04/2018 04:20 PM Electronically Signed By:Asha Arriaga RN CAGE Questionnaire CAGE Do you feel you ought to Answers: No cut down on your drinking or drug use? Do people annoy you by Answers: No criticizing your drinking or drug use? Do you feel guilty about Answers: No your drinking or drug use? 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 Additional Comments 6 gin and tonics per day. 2 oz of gin per drink (12 oz total/day). Declined resources stating "I will cut back if a doctor tells me to." Date Signed: 06/06/2018 03:14 PM Electronically Signed By:Mckenzie Mo RN Case Management Discharge Plan Note Case Management Discharge Discharge Order Complete? Answers: Yes Patient to Obtain Answers: Independently Medications Discharge Comments Notes: 06/06/2018 Case Management Note Met w/pt to discuss discharge needs. Pt to discharge home independent. Transitional Care RN to follow at home. Completed CAGE. Pt declined resources. Phone call to RN assistant child care teacher at [facility] [phone] Burt to discuss alcohol consumption at next visit. Date Signed: 06/06/2018 03:17 PM Electronically Signed By:Mckenzie Mo RN Intervention Information
[2018-06-06 15:28] VITALS: BP 106/56
--- NOTE | 2018-06-06 15:29 | GDS ---
DISCHARGE DIAGNOSES: 1. New atrial fibrillation. 2. Acute on chronic hypoxemic respiratory failure. 3. History of coronary disease. 4. Systolic heart failure. 5. History of coronary artery disease with 3-vessel coronary artery bypass graft. 6. Hypertension. 7. Hyperlipidemia. 8. Sleep apnea, on 2 L at night. 9. Cardiomyopathy. HOSPITAL COURSE: Please see admission history and physical by Dr. Argentina Mur[place]. The patient present ed with lower extremity edema and dyspnea on exertion. Workup was negative for VTE. He was found to be in new atrial fibrillation. The patient was diuresed. He was cardioverted, with improvement in his status. He had mild acute kidney injury that improved with diuresis. His LVEF was 30% to 35% wi th wall motion abnormalities in the inferior septal, mid inferior and apical regions. There is no ap ical thrombus. The patient underwent SHANNON cardioversion. He was initiated on Eliquis. He was mainta ined in sinus rhythm. He was diuresed. He was net negative about 5 L while here with improvement in his symptoms, although he remained hypoxemic. He did have an echocardiogram almost 8 years ago, showing septal and apical hypokinesis, so these fin dings are not new. He is discharged home. His Lasix was increased from 40 once daily to 40 b.i.d. I have communicated with his primary commissions coordinator, Dr. Gibbons, and advised him to get a Chem panel on Monday and given him a prescription for this. /[id number]/MODL
== END 2018-06-06 16:48 | disposition home or self-care (01) | DRG 291 ==
LOC: F2W 13:30
PROVIDERS: ADMIT Internal Medicine; ATTEND Internal Medicine
DX: I11.0 Hypertensive heart disease with heart failure (principal); I50.21 Acute systolic (congestive) heart failure; J96.21 Acute and chronic respiratory failure with hypoxia; I48.1 Persistent atrial fibrillation; I48.92 Unspecified atrial flutter; N17.9 Acute kidney failure, unspecified; I25.10 Atherosclerotic heart disease of native coronary artery without angina pectoris; E78.5 Hyperlipidemia, unspecified; G47.30 Sleep apnea, unspecified; I42.9 Cardiomyopathy, unspecified; Z95.1 Presence of aortocoronary bypass graft; Z95.5 Presence of coronary angioplasty implant and graft; Z86.718 Personal history of other venous thrombosis and embolism; J44.9 Chronic obstructive pulmonary disease, unspecified; G47.33 Obstructive sleep apnea (adult) (pediatric); G89.29 Other chronic pain; J32.9 Chronic sinusitis, unspecified; I27.20 Pulmonary hypertension, unspecified; Z79.01 Long term (current) use of anticoagulants
CPT/HCPCS: 84484-ER; 97165-GO; G0480; J0461; J1940; J2704; Q9957; Q9967

== ENCOUNTER 2018-06-29 06:05 | Day surgery (SDC) | payer OTHER, MEDICARE ==
[2018-06-29] MEDS ORDERED: ATROPINE SULFATE 1 MG/10 ML SYR IVP ONE (06:10)
[2018-06-29] MEDS ORDERED: NS 1,000 ML IV ONE (06:10)
[2018-06-29 07:05] LABS: INR 1.46 (0.83-1.16); PROTIME(PATIENT) 17.9 SEC (12.0-15.0)
--- NOTE | 2018-06-29 07:26 | PDANEPAE ---
ANE History of Present Illness A-flutter to 140's ANE Past Medical History - Cardiovascular History Hx Hypertension: Yes Hx Arrhythmias: No Hx Chest Pain: No Hx Coronary Artery / Peripheral Vascular Disease: Yes Hx CHF / Valvular Disease: No Hx Palpitations: No Cardiovascular History Comment: CABG x 3 2008 - Pulmonary History Hx COPD: Yes Hx Asthma/Reactive Airway Disease: No Hx Recent Upper Respiratory Infection: No Hx Oxygen in Use at Home: Yes Hx Sleep Apnea: Yes Pulmonary History Comment: CPAP at night - Neurologic History Hx Cerebrovascular Accident: No Hx Seizures: No Hx Dementia: No - Endocrine History Hx Diabetes: No - Renal History Hx Renal Disorders: No - Liver History Hx Hepatic Disorders: No - Neurological & Psychiatric Hx Hx Neurological and Psychiatric Disorders: No - Cancer History Hx Cancer: No - Congenital Disorder History Hx Congenital Disorders: No Congenital History Comment: degenerative disc dx - GI History Hx Gastrointestinal Disorders: No - Other Health History Other Health History: degenerative disc disease - Chronic Pain History Chronic Pain: Yes (lower back) - Surgical History Prior Surgeries: multiple back and neck surgeries, cataracts, heart bypass, right hip replacement, right ulna nerve, right shoulder, right knee, right great toe ANE Review of Systems Review of Systems: ANE Patient History - Allergies Allergies/Adverse Reactions: No Allergies [NKA] Allergy (Verified 06/28/18 15:27) - Home Medications Home medications: home medication list seen and reviewed Home Medications: Budesonide/Formoterol 160/4.5 [Symbicort 160-4.5 Mcg Inh (*)] 2 puffs IH BID 12/14 [Last Taken 06/29/18 05:00] Calcium Carb W/Vit D 500/200 (*) 1 tab PO HS 06/04/18 [Last Taken 06/28/18 21:00 ] Carvedilol [Coreg (*)] 25 mg PO BID 06/04/18 [Last Taken 06/28/18 21:00] Glucosamine/MSM/Chondroitin A [Glucosamine Chondroit MSM Tab] 1 each PO BID 12/14 [Last Taken 06/28/18 21:00] Ibuprofen [Motrin (*)] 400 mg PO TID 06/04/18 [Last Taken 06/08/18 21:00] Lisinopril [Zestril 40 mg (*)] 20 mg PO HS 06/04/18 [Last Taken 06/28/18 21:00] Loratadine [Claritin 10 mg] 10 mg PO DAILY 06/04/18 [Last Taken 06/28/18 08:00] Lutein 20 mg PO DAILY 06/04/18 [Last Taken 06/28/18 21:00] Multivitamins [Multivitamin (*)] 1 each PO DAILY 06/04/18 [Last Taken 06/28/18 08:00] [place]-3/Dha/Epa/Fish Oil [Fish Oil 1,000 mg Softgel] 1 each PO BID 06/04/18 [ Last Taken 06/28/18 21:00] Simvastatin 2.5 mg PO HS 06/04/18 [Last Taken 06/28/18 21:00] Umeclidinium [place] [Incruse Ellipta] 62.5 mcg IH DAILY 06/04/18 [Last Taken 05:00] Vitamin B Complex (OTC) 1 tab PO HS 06/04/18 [Last Taken 06/28/18 21:00] - NPO status NPO Status: no food or drink >8 hours - Anes Hx Anes Hx: no prior problems - Smoking Hx Smoking Status: Former smoker - Family Anes Hx Family Hx Anesthesia Complications: denies ANE Labs/Vital Signs - Labs Result Diagrams: 06/29/18 06:45 - Vital Signs Height: 175.2 cm Weight: 87.4 kg ANE Physical Exam - Airway Neck exam: decreased ROM Mallampati Score: Class 2 Mouth exam: normal dental/mouth exam - Pulmonary Pulmonary: no respiratory distress - Cardiovascular Cardiovascular: irregularly irregular, tachycardia - ASA Status ASA Status: III ANE Anesthesia Plan Anesthesia Plan: MAC (with brief IV GA)
[2018-06-29] MEDS ORDERED: PROPOFOL 200 MG/20 ML VIAL ONE (07:30)
[2018-06-29] MEDS ORDERED: LIDOCAINE 1% 5 ML SDV ONE (07:30)
--- NOTE | 2018-06-29 07:53 | POSTANESTH ---
Post Anesthetic Evaluation Cardiovascular Status: Similar to Pre-Op Cond Respiratory Status: Similar to Pre-op Cond. Level of Consciousness/Mental Status: Alert and Oriented Pain Control: Adequate, Prn Tx Ordered Nausea/Vomiting Control: Adequate, Prn Tx Ordered Complications Possibly Related to Anesthesia: None Noted
--- NOTE | 2018-06-29 09:21 | CPEKG ---
Test Reason : OPEN Blood Pressure : / mmHG Vent. Rate : 138 BPM Atrial Rate : 000 BPM P-R Int : 156 ms QRS Dur : 092 ms QT Int : 340 ms P-R-T Axes : 093 024 -28 degrees QTc Int : 516 ms atrial flutter with 2:1 av blocka Probable anteroseptal infarct, old Confirmed by Dominick Mckeon ([id number]) on 06/29/2018 9:21:16 AM Referred By: Farooq Hernandez Confirmed By:Dominick Mckeon
--- NOTE | 2018-06-29 09:22 | CPEKG ---
Test Reason : OPEN Blood Pressure : / mmHG Vent. Rate : 075 BPM Atrial Rate : 075 BPM P-R Int : 223 ms QRS Dur : 099 ms QT Int : 381 ms P-R-T Axes : 068 060 082 degrees QTc Int : 426 ms Sinus rhythm Prolonged UT interval Anterior infarct, old Confirmed by Dominick Mckeon ([id number]) on 06/29/2018 9:21:58 AM Referred By: Farooq Hernandez Confirmed By:Dominick Mckeon
--- NOTE | 2018-06-29 11:38 | CPR ---
[f rep st] NONINVASIVE CARDIAC PROCEDURE REPORT DATE OF PROCEDURE: 06/29/2018 PROCEDURE PERFORMED: Cardioversion. INDICATIONS: Atrial flutter with fast ventricular rate with hypotension, dizziness, and shortness of breath. CONSENT: Signed. The risks, benefits, and alternatives were discussed with the patient. He wishes to proceed. TECHNICAL DIFFICULTIES: None. DESCRIPTION OF PROCEDURE AND RESULTS: In the CVC unit, with an IV in place, Anesthesia gave the darren ent 35 mg of IV propofol, which adequately sedated him. He was initially in atrial flutter at 140 be ats per minute with a blood pressure of 79/53. With biphasic AP pads, he received a 200 joule synchr onized shock which converted him to sinus rhythm with a post-cardioversion blood pressure of 82/59. He awoke from sedation well, with no new neurological deficits. COMPLICATIONS: None. FINAL IMPRESSION: Successful cardioversion of atrial flutter to sinus rhythm with a 200 joule synchr onized shock. /[id number]/MODL
== END 2018-06-29 09:11 | disposition home or self-care (01) ==
LOC: FCATH 06:05
PROVIDERS: ATTEND Internal Medicine Cardiovascular Disease
PROC: 5A2204Z Restoration of Cardiac Rhythm, Single (ICD-10-PCS; principal; 2018-06-29)
DX: I48.92 Unspecified atrial flutter (principal); I48.0 Paroxysmal atrial fibrillation; I25.10 Atherosclerotic heart disease of native coronary artery without angina pectoris; I11.0 Hypertensive heart disease with heart failure; I50.22 Chronic systolic (congestive) heart failure; E78.5 Hyperlipidemia, unspecified; G47.33 Obstructive sleep apnea (adult) (pediatric); Z95.1 Presence of aortocoronary bypass graft; Z96.641 Presence of right artificial hip joint
CPT/HCPCS: J2704

== ENCOUNTER 2018-07-09 06:51 | Observation (INO) | payer OTHER, MEDICARE ==
--- NOTE | 2018-06-29 07:26 | PDHPUP ---
History & Physical Update H&P update statement: This history and physical update is based on an assessment of the patient which was completed after admission or registration (within 24 hours), but prior to the surgery/procedure. H&P update: H&P reviewed & patient examined, no change in patient's condition since H&P completed (BP still 75/40, )
--- NOTE | 2018-06-29 07:26 | PDPROPOC ---
Sedation Plan of Care Sedation Plan of Care: mental status noted, patient educated of risks, benefits , alternatives, patient can tolerate sedation ASA Classification: ASA 3 Mallampati Score: Class 3 Mallampati Reference Image: Patient passed 3-3-2 rule?: Yes
--- NOTE | 2018-06-29 07:42 | PDCARD ---
Cardioversion Procedure Procedure: electrical cardioversion Indications: other (atrial flutter at 140bpm) Consent: signed and in chart Anticoagulation: eliquis Procedural Details: Pads were placed in anterior-posterior position. Synchronized cardioversion attempt #1: 200J Patient Problems: Problems Problem Status Onset Dyspnea Acute Elevated troponin Acute Heart failure Acute Lumbar stenosis Acute chronic disease mgmt/transitional care Acute
[2018-07-09] MEDS ORDERED: NS 1,000 ML IV ONE (06:56)
[2018-07-09] MEDS ORDERED: THROMBIN (BOVINE) 5,000 UNIT VIAL TP ONE (07:07)
[2018-07-09] MEDS ORDERED: BUPIVACAINE 0.25% 30 ML SDV ONE (07:07)
[2018-07-09] MEDS ORDERED: BACITRACIN 50,000 UNITS/10 ML SYR IRR ONE (07:07)
[2018-07-09] MEDS ORDERED: CHLORHEXIDINE GLUC HIBICLENS 118 ML BTL TP ONE (07:07)
[2018-07-09] MEDS ORDERED: EPINEPHrine 1 MG/ML INJ ONE (07:08)
[2018-07-09 07:39] LABS: PLATELET COUNT 217 10^3/uL (150-400)
[2018-07-09 07:48] LABS: INR 1.19 (0.83-1.16); PROTIME(PATIENT) 15.3 SEC (12.0-15.0)
[2018-07-09] MEDS ORDERED: MIDAZOLAM 2 MG/2 ML VIAL IVP ONE (08:07)
--- NOTE | 2018-07-09 08:10 | PDANEPAE ---
ANE History of Present Illness kadeem,ep ANE Past Medical History - Cardiovascular History Hx Hypertension: Yes Hx Arrhythmias: Yes Hx Chest Pain: No Hx Coronary Artery / Peripheral Vascular Disease: Yes Hx CHF / Valvular Disease: No Hx Palpitations: No Cardiovascular History Comment: CABG x 3 2008 - Pulmonary History Hx COPD: Yes Hx Asthma/Reactive Airway Disease: No Hx Recent Upper Respiratory Infection: No Hx Oxygen in Use at Home: Yes Hx Sleep Apnea: Yes Pulmonary History Comment: CPAP at night - Neurologic History Hx Cerebrovascular Accident: No Hx Seizures: No Hx Dementia: No - Endocrine History Hx Diabetes: No Hypothyroid: No Hyperthyroid: No Obesity: mild - Renal History Hx Renal Disorders: No - Liver History Hx Hepatic Disorders: No - Neurological & Psychiatric Hx Hx Neurological and Psychiatric Disorders: No - Cancer History Hx Cancer: No - Congenital Disorder History Hx Congenital Disorders: No Congenital History Comment: degenerative disc dx - GI History GERD: mild Hx Gastrointestinal Disorders: No - Other Health History Other Health History: degenerative disc disease - Chronic Pain History Chronic Pain: Yes (lower back) - Surgical History Prior Surgeries: multiple back and neck surgeries, cataracts, heart bypass, right hip replacement, right ulna nerve, right shoulder, right knee, right great toe ANE Review of Systems Review of Systems: - Exercise capacity Exercise capacity: >=4 METS ANE Patient History - Allergies Allergies/Adverse Reactions: No Allergies [NKA] Allergy (Verified 06/28/18 15:27) - Home Medications Home medications: home medication list seen and reviewed Home Medications: Budesonide/Formoterol 160/4.5 [Symbicort 160-4.5 Mcg Inh (*)] 2 puffs IH BID 12/14 [Last Taken 07/09/18 05:00] Calcium Carbonate [Oyster Shell Calcium 500 mg (*)] 500 mg PO DAILY #0 06/04/18 [Last Taken 07/08/18 06:00] Carvedilol [Coreg (*)] 25 mg PO BID 06/04/18 [Last Taken 07/08/18 19:00] Glucosamine/MSM/Chondroitin A [Glucosamine Chondroit MSM Tab] 1 each PO BID 12/14 [Last Taken 07/08/18 06:00] Lisinopril [Zestril 40 mg (*)] 10 mg PO HS 06/04/18 [Last Taken 07/08/18 19:00] Loratadine [Claritin 10 mg] 10 mg PO DAILY 06/04/18 [Last Taken 07/08/18 06:00] Lutein 20 mg PO DAILY 06/04/18 [Last Taken 07/08/18 06:00] Multivitamins [Multivitamin (*)] 1 each PO DAILY 06/04/18 [Last Taken 07/08/18 06:00] Purmela-3/Dha/Epa/Fish Oil [Fish Oil 1,000 mg Softgel] 1 each PO BID 06/04/18 [ Last Taken 07/08/18 19:00] Simvastatin 5 mg PO HS 06/04/18 [Last Taken 07/08/18 19:00] Umeclidinium [place] [Incruse Ellipta] 1 puffs IH DAILY 06/04/18 [Last Taken 04/16 05:00] Vitamin B Complex [Vitamin B Complex (OTC)] 1 each PO DAILY #0 06/04/18 [Last Taken 07/08/18 06:00] Acetaminophen [Tylenol ES 500 mg (*)] 500 mg PO Q4HRS PRN 07/02/18 [Last Taken 07/09/18 04:00] Ascorbic Acid [Vitamin C 500 mg (*)] 500 mg PO DAILY 07/02/18 [Last Taken 06:00] Spironolactone [Aldactone 25 MG (*)] 25 mg PO DAILY 07/02/18 [Last Taken 06:00] - NPO status NPO Status: no food or drink >8 hours - Smoking Hx Smoking Status: Former smoker - Family Anes Hx Family Hx Anesthesia Complications: denies ANE Labs/Vital Signs - Labs Result Diagrams: 07/09/18 07:15 07/09/18 07:15 - Vital Signs Height: 175.26 cm Weight: 86.183 kg ANE Physical Exam - Airway Mallampati Score: Class 2 Mouth exam: normal dental/mouth exam - Pulmonary Pulmonary: no respiratory distress - Cardiovascular Cardiovascular: regular rate and rhythym - ASA Status ASA Status: III ANE Anesthesia Plan Anesthesia Plan: general endotracheal anesthesia
[2018-07-09] MEDS ORDERED: HEPARIN 10,000 UNIT/10 ML MDV (1,000 UNIT/ML) ONE (08:13)
[2018-07-09] MEDS ORDERED: LIDOCAINE 1% 300 MG/30 ML SDV ONE (08:13)
[2018-07-09] MEDS ORDERED: ISOPROTERENOL HCL/D5W 0.2 MG/50 ML BAG IV ONE (08:13)
[2018-07-09] MEDS ORDERED: BUPIVACAINE 0.75% 10 ML SDV ONE (08:13)
[2018-07-09] MEDS ORDERED: LIDOCAINE 2% 5 ML SDV ONE (08:23)
[2018-07-09] MEDS ORDERED: ROCURONIUM 100 MG/10 ML VIAL ONE (08:23)
[2018-07-09] MEDS ORDERED: PHENYLEPHRINE 10 MG/ML SDV ONE (08:23)
[2018-07-09] MEDS ORDERED: SUCCINYLCHOLINE CHLORIDE 200 MG/10 ML SYR IVP ONE (08:23)
[2018-07-09] MEDS ORDERED: fentaNYL 100 MCG/2 ML INJ ONE (08:24)
[2018-07-09] MEDS ORDERED: PROPOFOL 200 MG/20 ML VIAL ONE (08:24)
--- NOTE | 2018-07-09 08:40 | PDGENHP ---
History & Physical Chief Complaint: AFL, CMP Relevant Physical Exam: s1s2 irreg cta ao3 Cardiorespiratory Assessment: afl for ablation
--- NOTE | 2018-07-09 09:01 | CPEKG ---
Test Reason : OPEN Blood Pressure : / mmHG Vent. Rate : 140 BPM Atrial Rate : 140 BPM P-R Int : 123 ms QRS Dur : 112 ms QT Int : 285 ms P-R-T Axes : 094 008 -42 degrees QTc Int : 435 ms Atrial flutter with 2 to 1 block Confirmed by Jj Russo ([id number]) on 07/09/2018 9:00:43 AM Referred By: Jj Russo Confirmed By:Jj Russo
[2018-07-09] MEDS ORDERED: ONDANSETRON 4 MG/2 ML VIAL ONE (10:22)
[2018-07-09] MEDS ORDERED: SUGAMMADEX SODIUM 200 MG/2 ML VIAL IVP ONE (10:22)
[2018-07-09] MEDS ORDERED: ONDANSETRON 4 MG/2 ML VIAL IVP PRN (10:48)
[2018-07-09] MEDS ORDERED: ALBUTEROL 3 ML DEYVIAL IH PRN (10:48)
[2018-07-09] MEDS ORDERED: NALOXONE HCL 0.4 MG/ML INJ IVP PRN (10:48)
[2018-07-09] MEDS ORDERED: fentaNYL 100 MCG/2 ML INJ IVP PRN (10:48)
--- NOTE | 2018-07-09 10:49 | POSTANESTH ---
Post Anesthetic Evaluation Cardiovascular Status: Normal, Stable Respiratory Status: Normal, Stable Level of Consciousness/Mental Status: Can Participate in Eval Pain Control: Adequate, Prn Tx Ordered Nausea/Vomiting Control: Adequate, Prn Tx Ordered Complications Possibly Related to Anesthesia: None Noted
[2018-07-09] MEDS ORDERED: METHOCARBAMOL 750 MG TAB ONE (11:10)
[2018-07-09] MEDS: APIXABAN 5 MG TAB PO SCH ×2 (11:46→21:12)
--- NOTE | 2018-07-09 11:53 | EPPROC ---
Electrophysiology Procedure Note: ELECTROPHYSIOLOGIC STUDY AND CATHETER MEDIATED ABLATION FOR SUBEUSTACHIAN ISTHMUS DEPENDENT COUNTERCLOCKWISE ATRIAL FLUTTER: INDICATION: Recurrent atrial flutter PROCEDURES PERFORMED: 86755-87 EP evaluation with RA/RV/LA pace/record, with arrhythmia induction 40864-23 EP evaluation with RA/RV pace record, insert/reposition catheter, with arrhythmia induction 23934 SVT ablation 92517 3D mapping Fluoroscopy Catheters & Anesthesia: The patient arrived in the Electrophysiology Laboratory in the fasting state. The right clavicular region, right groin, and left groin area were prepped and draped in the usual sterile manner. Anesthesiologist Dr. Myra Andre administered general anesthesia. Appropriate non-invasive blood pressure, pulse oximetry and end-tidal CO2 monitoring was established. All catheters were placed percutaneously using the modified Seldinger technique , and advanced into position under fluoroscopic guidance. One #7 [place] deflectable octapolar electrode catheter was advanced to the His-bundle position via the left femoral vein and then into the coronary sinus. One # 7 [place] Halo catheter was inserted through the left femoral vein and was placed at the tricuspid annulus. Patient was on Eliquis. Programmed stimulation was performed from the right atrium, coronary sinus ( left atrium) and right ventricle. On arrival to the Electrophysiology Laboratory the patient was in atrial flutter , CL 250 ms. Entrainment mapping from lateral TA, septal TA, proximal CS and distal CS confirmed cavotricuspid isthmus dependent atrial flutter. In preparation for ablation of typical atrial flutter, a high-resolution 3D (3 dimensional) Carto electroanatomical map of the sub-Eustachian isthmus and right atrium was obtained during pacing of the posterolateral coronary sinus. For ablation of typical atrial flutter, one Mobi sheath was placed in the right atrium. A #8 [place] deflectable quadrapolar electrode catheter (2mm-5mm-2mm spacing) with 3.5 mm STSF irrigated tip electrode and location sensor for the [place] mapping system was inserted in the long sheath and advanced to the right atrium. Radiofrequency applications were applied between the tricuspid annulus at 0630 oclock as seen in the ANDERSON view and the inferior vena cava. This achieved termination of AFL and then conduction block across the isthmus. Post ablation, a high-resolution electroanatomical map of the sub-Eustachian isthmus was obtained during pacing of the posterolateral coronary sinus. This confirmed conduction block across the sub-Eustachian isthmus. Bidirectional block was also confirmed by pacing. The catheters were removed. Sheaths were removed in EP Lab post subQ purse string sutures. The patient was transferred to the cardiovascular holding area in stable condition. Vascular access sheaths were removed in the holding area. There were no apparent complications. CONCLUSIONS: 1. Cavotricuspid isthmus dependent counterclockwise atrial flutter. 2. Successful catheter mediated ablation of cavotricuspid isthmus achieving bi -directional conduction block across cavotricuspid isthmus. 3. No apparent complications. Patient Problems: Problems Problem Status Onset Elevated troponin Acute chronic disease mgmt/transitional care Acute Lumbar stenosis Acute Dyspnea Acute Heart failure Acute
[2018-07-09] MEDS: ACETAMINOPHEN 500 MG TAB PO PRN ×2 (15:40→21:11)
[2018-07-09] MEDS ORDERED: LISINOPRIL 10 MG TAB PO SCH (21:00)
[2018-07-09] MEDS: CARVEDILOL 25 MG TAB PO SCH (21:12)
[2018-07-09] MEDS: BUDESONIDE/FORMOTEROL 160/4.5 60 PUFFS/MDI IH SCH (21:46)
[2018-07-10 05:19] LABS: PLATELET COUNT 170 10^3/uL (150-400)
[2018-07-10] MEDS ORDERED: LIDOCAINE 1% 300 MG/30 ML SDV ONE (07:27)
[2018-07-10] MEDS ORDERED: PERFLUTREN LIPID MICROSPHERES 1.1 MG/ML VIAL IV ONE (08:15)
[2018-07-10] MEDS: BUDESONIDE/FORMOTEROL 160/4.5 60 PUFFS/MDI IH SCH (08:28)
[2018-07-10] MEDS: APIXABAN 5 MG TAB PO SCH (08:40)
[2018-07-10] MEDS: ACETAMINOPHEN 500 MG TAB PO PRN (08:43)
[2018-07-10] MEDS ORDERED: ASPIRIN EC 81 MG TAB PO SCH (09:00)
[2018-07-10] MEDS ORDERED: SPIRONOLACTONE 25 MG TAB PO SCH (09:00)
[2018-07-10] MEDS ORDERED: CETIRIZINE 10 MG TAB PO SCH (09:00)
[2018-07-10] MEDS ORDERED: PRAVASTATIN SODIUM 10 MG TAB PO SCH (09:00)
[2018-07-10] MEDS: CARVEDILOL 25 MG TAB PO SCH (09:14)
[2018-07-10 09:26] VITALS: BP 107/59
[2018-07-10] MEDS ORDERED: CARVEDILOL 25 MG TAB PO SCH ×2 (09:26→09:30)
--- NOTE | 2018-07-10 10:40 | GDS ---
[f rep st] DISCHARGE SUMMARY ADMISSION DIAGNOSIS: Atrial flutter. DISCHARGE DIAGNOSIS: Atrial flutter status post catheter-mediated ablation. PROCEDURES PERFORMED DURING HOSPITALIZATION: 1. Electrocardiogram. 2. Echocardiogram. 3. Electrophysiology study. 4. Atrial flutter ablation. HOSPITAL COURSE: The patient presented 07/09/2018 for an atrial flutter ablation in the setting of increasingly frequent and symptomatic episodes of atrial flutter. He underwent successful catheter-mediated ablation for counterclockwise atrial flutter with Dr. Jj Russo, achieving bidirectional conduction block across the cavotricuspid isthmus. He had no intraprocedure complications, and he has done very well in the postprocedure setting without any issues. He has been up ambulating around his room this morning, and he is appropriate and stable for discharge home at this time. CURRENT PHYSICAL EXAMINATION: GENERAL: Alert and oriented x4. No apparent distress. VITAL SIGNS: Blood pressure 107/59, heart rate 58, respiratory rate 15, SpO2 of 93% on 2 L nasal cannula. Temp 36.3 degrees Celsius. RESPIRATORY: Lungs are clear to auscultation without adventitious breath sounds. CARDIAC: Normal S1 and S2, no S3 or S4. Rhythm is regular. ABDOMEN: Normoactive bowel sounds times all 4 quadrants. No masses or tenderness. Abdomen is soft to palpation. SKIN: [place], warm, dry without cyanosis, clubbing, or peripheral edema. EXTREMITIES: Bilateral pursestring sutures removed intact without evidence of hematoma, redness, oozing, swelling, or warmth. He does have moderate ecchymosis to his left groin site with mild tenderness to palpation. Pulses are 2+ bilaterally, no edema. LABORATORY STUDIES: Drawn today. RBCs 3.81, hemoglobin 12.2, hematocrit 38.9. CBC otherwise stable compared to preprocedure. Troponin 0.443. Elevated troponin is to be expected in the postprocedure setting. PROCEDURES: Electrophysiology study and atrial flutter ablation as mentioned above. Preliminary echocardiogram done this morning demonstrates stable left ventricular systolic function without new wall motion abnormalities or pericardial effusion. Definity contrast was used to rule out thrombus without any evidence of concerns during this procedure. Electrocardiogram this morning demonstrates normal sinus rhythm with a prolonged interval measuring 234 msec. Previous ECG reviewed from 2017 (last time patient was documented in normal sinus rhythm), CO interval at that time demonstrates a prolonged CO interval of 211 msec. There are no new ST or T- wave abnormalities. DISCHARGE DISPOSITION: Patient will be discharged home in stable condition. He is under activity restrictions as below. DISCHARGE MEDICATIONS: Please see discharge medication reconciliation sheet for full details. Please note that the patient has been restarted on his Eliquis 6 hours post procedure. DISCHARGE INSTRUCTIONS: 1. Post atrial flutter ablation instructions reviewed with patient in detail. We discussed activity restrictions including lifting no more than 10 pounds and avoidance of submerged bathing for 10 days. He will get up and walk around every 45 minutes for the next 45 days while awake. 2. We also reviewed bleeding precautions, medication compliance, monitoring for signs and symptoms of infection, and monitoring for sustained arrhythmias. 3. At the time of discharge, patient verbalizes understanding of all discharge instructions without questions or concerns. He has a followup visit scheduled in 3 weeks and he will contact our clinic with any new or concerning symptoms prior to this upcoming visit. Time spent on discharge greater than 30 minutes. /[id number]/MODL MTDD
--- NOTE | 2018-07-10 11:13 | ECHO ---
[email or web address] [address] [address] Main: [phone] Fax: Transthoracic Echocardiogram Name: GEOVANNY VELAZCO MR#: [id number] Study Date: 07/10/2018 Study Time: 07:28 AM Date of : 1945 Age: 73 year(s) Height: 175.3 cm (69 in.) Weight: 86.18 kg (190 lb.) BSA: 2.02 m2 Gender: Male Examination: Echo Indication: F/U post EP study Image Quality: Good Contrast: Requested by: Jj Russo BP: 112 mmHg/65 mmHg Heart Rate: Rhythm: Indication: F/U post EP study Procedure Staff Inspector Balance Truing: Emilee Bergeron RDCS Reading Physician: Jj Russo MD Requesting Provider: Conclusions: The ejection fraction is estimated to be 40-45 %. Diastolic dysfunction is present. . 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 No apical thrombus visualized.. The left atrium is moderately dilated. The right atrium is mildly dilated. Mild to moderate mitral regurgitation. Moderate tricuspid regurgitation is present. RVSP is 51mmHG. . Definity contrast was used to eval LV apical region. 0.165mg of Definity was used.. Measurements: Chambers Valvular Assessment AV/MV Valvular Assessment TV/PV Normal Normal Normal Name Value Range Name Value Range Name Value Range IVSd (2D): 0.7 cm (0.6 cm-1.1 AV Vmax: 1.09 m/s (1 m/s-1.7 TR Vmax: 3.40 mm/s ( - ) cm) m/s) TR PGmax: 46 mmHg ( - ) LVDd (2D): 6.3 cm (4.2 cm-5.9 AV meanP mmHg ( - ) syst. PAP: 51 mmHg ( - ) cm) MV E Vmax: 1.08 m/s ( - ) LVPWd (2D): 0.9 cm (0.6 cm-1 MV A Vmax: 0.41 m/s ( - ) cm) MV E/A: 2.63 ( - ) LVEF (BP): 45 % (>=55 %) EF Range: 40-45 % Continued Measurements: Chambers Valvular Assessment AV/MV Valvular Assessment TV/PV Name Value Name Value Name Value LADs: 5.0 cm MV E' Septal: 0.06 m/s CVP (est.): 5 mmHg LADs Lon.0 cm MV E/E' Septal: 16.80 Patient: GEOVANNY VELAZCO Study Date: 07/10/2018 Page 1 of 2 07:28 AM LA Area: 29.8 cm2 MV E/E' Lateral: 13.50 LA Volume: 101 ml LA Volume Index: 50.0 ml/m2 Findings: Left Ventricle: Mildly to moderately dilated left ventricle. The ejection fraction is estimated to be 40-45 %. Diastolic dysfunction is present. . 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 No apical thrombus visualized.. Right Ventricle: Normal size right ventricle. Left Atrium: The left atrium is moderately dilated. Right Atrium: The right atrium is mildly dilated. Mitral Valve: The mitral valve is normal in appearance and function. Mild to moderate mitral regurgitation. Aortic Valve: The aortic valve is normal in appearance and function. There is no aortic valve regurgitation. Tricuspid Valve: The tricuspid valve is normal in appearance and function. Moderate tricuspid regurgitation is present. The pulmonary artery pressure is mildly increased. RVSP is 51mmHG. . Pulmonic Valve: Pulmonary valve not well visualized. Aorta: The aorta is normal. Pericardium: No pericardial effusion. Exam Comments: Definity contrast was used to eval LV apical region. 0.165mg of Definity was used.. (No Signature Object) Patient: GEOVANNY VELAZCO Study Date: 07/10/2018 Page 2 of 2 07:28 AM [id number]
--- NOTE | 2018-07-10 15:53 | CPEKG ---
Test Reason : OPEN Blood Pressure : / mmHG Vent. Rate : 053 BPM Atrial Rate : 053 BPM P-R Int : 234 ms QRS Dur : 100 ms QT Int : 422 ms P-R-T Axes : 051 070 078 degrees QTc Int : 397 ms Sinus rhythm Prolonged SD interval Anterior infarct, old Confirmed by Jj Russo ([id number]) on 07/10/2018 3:52:45 PM Referred By: Jj Russo Confirmed By:Jj Russo
--- NOTE | 2018-07-10 15:55 | CPEKG ---
Test Reason : OPEN Blood Pressure : / mmHG Vent. Rate : 077 BPM Atrial Rate : 077 BPM P-R Int : 226 ms QRS Dur : 096 ms QT Int : 364 ms P-R-T Axes : 067 074 084 degrees QTc Int : 412 ms Sinus rhythm Prolonged MN interval Low voltage with right axis deviation Probable anteroseptal infarct, old Minimal ST elevation, inferior leads Confirmed by Jj Russo ([id number]) on 07/10/2018 3:55:16 PM Referred By: Jj Russo Confirmed By:Jj Russo
== END 2018-07-10 11:28 | disposition home or self-care (01) ==
LOC: FCATH 06:51 → F2W 10:27
PROVIDERS: ADMIT Internal Medicine Cardiovascular Disease; ATTEND Internal Medicine Cardiovascular Disease
PROC: 02583ZZ Destruction of Conduction Mechanism, Percutaneous Approach (ICD-10-PCS; principal; 2018-07-09)
PROC: B245ZZ4 Ultrasonography of Left Heart, Transesophageal (ICD-10-PCS; principal; 2018-07-09)
PROC: 4A023FZ Measurement of Cardiac Rhythm, Percutaneous Approach (ICD-10-PCS; principal; 2018-07-09)
PROC: 02K83ZZ Map Conduction Mechanism, Percutaneous Approach (ICD-10-PCS; principal; 2018-07-09)
PROC: 5A1213Z Performance of Cardiac Pacing, Intermittent (ICD-10-PCS; principal; 2018-07-09)
DX: I48.92 Unspecified atrial flutter (principal); I48.0 Paroxysmal atrial fibrillation; I48.1 Persistent atrial fibrillation; I50.21 Acute systolic (congestive) heart failure; I42.9 Cardiomyopathy, unspecified; I25.10 Atherosclerotic heart disease of native coronary artery without angina pectoris; J44.9 Chronic obstructive pulmonary disease, unspecified; I11.0 Hypertensive heart disease with heart failure; G47.33 Obstructive sleep apnea (adult) (pediatric); E78.5 Hyperlipidemia, unspecified; I34.0 Nonrheumatic mitral (valve) insufficiency; I36.1 Nonrheumatic tricuspid (valve) insufficiency; Z79.82 Long term (current) use of aspirin; Z79.01 Long term (current) use of anticoagulants; Z95.1 Presence of aortocoronary bypass graft; Z87.891 Personal history of nicotine dependence; Z86.718 Personal history of other venous thrombosis and embolism; Z96.641 Presence of right artificial hip joint
CPT/HCPCS: 93005; 93312; 93613; 93621; 93653; C1731; C1732; C1766; C8929; J0330; J1644; J2370; J2405; J2704; J3010; Q9957; J0171

== ENCOUNTER 2018-09-03 10:56 | Day surgery (SDC) | payer OTHER, MEDICARE ==
[2018-09-03] MEDS ORDERED: LIDOCAINE 1% 300 MG/30 ML SDV SC ONE (10:59)
[2018-09-03] MEDS ORDERED: LIDOCAINE 1% 300 MG/30 ML SDV ONE (11:07)
--- NOTE | 2018-09-03 11:55 | PDGENHP ---
History & Physical Chief Complaint: Atrial flutter History of Present Illness: Atrial flutter s/p recent ablation, no documented history of AF. Patient has requested to stop his anticoagulant second to frequent spinal injections Relevant Physical Exam: Alert and oriented x4, no apparent distress, respiratory CTA, regular rate and rhythm Cardiorespiratory Assessment: Proceed with implant of LINQ for long-term monitoring related to potential atrial fibrillation
--- NOTE | 2018-09-03 12:09 | EPPROC ---
Electrophysiology Procedure Note: LINQ monitor implant Indication - AFL, assess for AFIB Consent on chart Anesthesia - lidocaine only Procedure - using sterile technique, using provided tool, LINQ monitor was placed in L 4th ICS using sterile technique. No complications. Wound closed with 2 jerson. Patient Problems: Problems Problem Status Onset Atrial flutter Acute Elevated troponin Acute chronic disease mgmt/transitional care Acute Lumbar stenosis Acute Dyspnea Acute Heart failure Acute
== END 2018-09-03 12:46 | disposition home or self-care (01) ==
LOC: FCATH 10:56
PROVIDERS: ATTEND Internal Medicine Cardiovascular Disease
PROC: 0JH602Z Insertion of Monitoring Device into Chest Subcutaneous Tissue and Fascia, Open Approach (ICD-10-PCS; principal; 2018-09-03)
DX: I48.92 Unspecified atrial flutter (principal); I47.1 Supraventricular tachycardia; M48.061 Spinal stenosis, lumbar region without neurogenic claudication; I11.0 Hypertensive heart disease with heart failure; I25.10 Atherosclerotic heart disease of native coronary artery without angina pectoris; J44.9 Chronic obstructive pulmonary disease, unspecified; I50.9 Heart failure, unspecified; G47.33 Obstructive sleep apnea (adult) (pediatric); Z86.718 Personal history of other venous thrombosis and embolism
CPT/HCPCS: C1764

== ENCOUNTER 2018-11-05 08:10 | Inpatient (IN) | payer OTHER, MEDICARE | END 2018-11-08 11:34 | LOC: F3N 08:10 ==